=== PATIENT | female | born 1945 | race Two or more races ===

== ENCOUNTER 2017-11-18 08:26 | Inpatient (IN) | payer MEDICARE, OTHER ==
[~2017-11-18] VITALS: Ht 162.6 cm; Wt 63.5 kg
--- NOTE | 2017-11-18 09:00 | NUR ---
PATIENT TO ED DT NAUSEA, VOMITING, DIARRHEA, CHILLS. PATIENT ARRIVED AAO4. COMPLAINING OF CHILLS. SKIN WARM TO TOUCH AND NON DIAPHORETIC,. AFEBRILE. VSS
[2017-11-18] MEDS ORDERED: ONDANSETRON HCL/PF 4 MG/2 ML VIAL ONE ×2 (09:13→12:02)
[2017-11-18] MEDS ORDERED: ACETAMINOPHEN 325 MG TABLET ONE (09:14)
[2017-11-18 09:26] LABS: BASOPHILS # (AUTO) 0.6 /CMM (0.0-0.2); BASOPHILS % (AUTO) 2.9 % (0.0-2.0); EOSINOPHILS # (AUTO) 0.2 /CMM (0.0-0.7); EOSINOPHILS % (AUTO) 0.9 % (0.0-6.0); HEMATOCRIT 44 % (33-45); HEMOGLOBIN 14.8 g/dL (11.5-14.8); LYMPHOCYTES # (AUTO) 2.2 /CMM (0.8-4.8); LYMPHOCYTES % (AUTO) 10.4 % (20.0-44.0); MEAN CORPUSCULAR HEMOGLOBIN 30 PG (26.0-33.0); MEAN CORPUSCULAR HGB CONC 34 g/dl (31.0-36.0); MEAN CORPUSCULAR VOLUME 90 fL (82-100); MONOCYTES % (AUTO) 4.8 % (2.0-12.0); NEUTROPHILS # (AUTO) 17.5 /CMM (1.8-8.9); PLATELET COUNT (AUTO) 301 /CMM (150-450); RDW COEFFICIENT OF VARIATION 12.9 (11.5-15.0); RED BLOOD CELL COUNT(AUTO) 4.85 MIL/uL (4.0-5.2); WHITE BLOOD COUNT (AUTO) 21.5 K/uL (4.3-11.0)
[2017-11-18] MEDS ORDERED: ACETAMINOPHEN ES 500 MG TABLET PO ONE (09:30)
[2017-11-18] MEDS ORDERED: IV NS 0.9% 1,000 ML BAG IV ONE (09:30)
[2017-11-18] MEDS ORDERED: ONDANSETRON HCL/PF 4 MG/2 ML VIAL IVP ONE (09:30)
[2017-11-18 09:39] LABS: CALCIUM, SERUM 9.7 mg/dL (8.5-10.1); CARBON DIOXIDE 25 mmol/L (21-32); CHLORIDE 96 mmol/L (98-107); GLUCOSE 202 mg/dL (74-106); POTASSIUM 3.5 mmol/L (3.5-5.1); SODIUM SERUM 136 mmol/L (136-145); UREA NITROGEN, BLOOD 16 mg/dL (7-18)
[2017-11-18 09:45] LABS: ALANINE AMINOTRANSFERASE 30 U/L (12-78); ALBUMIN 4.4 g/dL (3.4-5.0); ALKALINE PHOSPHATASE 100 U/L (46-116); ASPARTATE AMINOTRANSFERASE 41 U/L (15-37); BILIRUBIN,DIRECT 0.2 mg/dL (0.0-0.2); BILIRUBIN,TOTAL 1.8 mg/dL (0.2-1.0); LIPASE 192 U/L (73-393); TROPONIN I 0.316 ng/mL (0.00-0.056)
[2017-11-18 10:49] LABS: APPEARANCE,URINE Clear (CLEAR); BILIRUBIN,URINE Negative (NEGATIVE); BLOOD, URINE Trace-lysed Ery/uL (NEGATIVE); COLOR,URINE Yellow (YELLOW); KETONES,URINE 15 (NEGATIVE); LEUKOCYTE ESTERASE ,URINE Negative (NEGATIVE); NITRITE, URINE Negative (NEGATIVE); PROTEIN,URINE 30 mg/dl (NEGATIVE); UGLUCOSE Negative (NEGATIVE); UROBILINOGEN,URINE 0.2 EU/dL (0.2)
[2017-11-18] MEDS ORDERED: ASPIRIN 81 MG TAB.CHEW ONE (10:50)
[2017-11-18] MEDS ORDERED: ASPIRIN 81 MG TAB.CHEW PO ONE (11:00)
[2017-11-18 11:03] LABS: BACTERIA,URINE Rare /HPF (None Seen); MUCUS,URINE Few /LPF (None Seen); RBC,URINE 0-2 /HPF (0-2); SQUAMOUS EPITHELIAL CELL,UR Rare /HPF (None Seen); WBC,URINE 0-2 /HPF (0-3); YEAST,URINE Few /HPF (None Seen)
[2017-11-18] MEDS ORDERED: LEVO75TA7 PO (11:08)
[2017-11-18] MEDS ORDERED: ATOR40TA PO (11:08)
[2017-11-18] MEDS ORDERED: SERT50TA PO (11:08)
[2017-11-18] MEDS ORDERED: LOSA1TAB36 PO (11:08)
[2017-11-18] MEDS ORDERED: LORAZEPAM 1 MG TABLET ONE (11:23)
--- NOTE | 2017-11-18 11:25 | NUR ---
CRISTELA VIERA AT BEDSIDE
[2017-11-18] MEDS ORDERED: LORAZEPAM 1 MG TABLET PO ONE (11:30)
[2017-11-18] MEDS ORDERED: ONDANSETRON HCL/PF - ER 4 MG/2 ML VIAL IV ONE (12:00)
--- NOTE | 2017-11-18 12:24 | NUR ---
report given to maria c castellanos for lashonda
--- NOTE | 2017-11-18 12:40 | NUR ---
PT TRANSPORTED TO [facility]
[2017-11-18] MEDS ORDERED: MAG HYDROX/AL HYDROX/SIMETH 30 ML UDC PO PRN (13:00)
[2017-11-18] MEDS ORDERED: Z GUARD REMEDY 2 OZ OINT TP PRN (13:00)
[2017-11-18] MEDS ORDERED: MAGNESIUM HYDROXIDE 30 ML UDC PO PRN (13:00)
[2017-11-18] MEDS ORDERED: MORPHINE SULFATE INJ 2 MG/ML DISP.SYRIN IM PRN (13:00)
[2017-11-18] MEDS ORDERED: HYDROCODONE/APAP 5/325MG 1 EACH TABLET PO PRN (13:00)
[2017-11-18] MEDS ORDERED: ACETAMINOPHEN 325 MG TABLET PO PRN (13:00)
--- NOTE | 2017-11-18 13:00 | NUR ---
SOFTWARE DEVELOPERCERAMIC TILE MECHANIC NOTE PATIENT IS ALERT AND ORIENTED x4. NO PAIN AT THIS TIME. NO SOB OR DISTRESS NOTED. CALL LIGHT WITHIN REACH. SAFETY MEASURES IMPLEMENTED. ABLE TO COMMUNICATE NEEDS. NO EPISODES OF NAUSEA OR VOMITING AT THIS TIME. CAME FROM ER VIA GURNEY, PATIENT ABLE TO AMBULATE, STEADY GAIT. IV ON RIGHT AC 20G INTACT AND PATENT NO REDNESS OR SWELLING NOTED. ALL BELONGINGS ACCOUNTED FOR AND AT BEDSIDE. FULL CODE NO ISOLATION. NO MEDICAL HISTORY. PATIENT IS A LITTLE ANXIOUS, FAMILY AT BEDSIDE TALKING TO PATIENT TO CALM HER DOWN. AWAITING MD ORDERS AND CARDIO CONSULT. WILL CONTINUE TO MONITOR THROUGHOUT SHIFT
[2017-11-18] MEDS: METOCLOPRAMIDE HCL 10 MG/2 ML VIAL IV PRN ×2 (14:01→21:05)
--- NOTE | 2017-11-18 14:05 | NUR ---
LIBRARIAN HEAD NOTE PATIENT STATING SHE FEELS NAUSEOUS. REGLAN 10 MG GIVEN. WILL REASSESS IN 15 MINS.
--- NOTE | 2017-11-18 14:25 | NUR ---
IMMIGRATION GUARD NOTE PATIENT TOLERATING REGLAN WELL. NO EPISODES OF NAUSEA OR VOMITING PRESENT AT THIS TIME. PATIENT SLEEPING COMFORTABLY
[2017-11-18] MEDS: IV NS 0.9% 1,000 ML IV PRN (14:56)
[2017-11-18 16:00] VITALS: BP 134/73
[2017-11-18] MEDS: ONDANSETRON HCL/PF 4 MG/2 ML VIAL IVP PRN (17:51)
--- NOTE | 2017-11-18 18:35 | NUR ---
INSPECTOR WATCH ASSEMBLY CLOSING NOTE PATIENT IS ALERT AND ORIENTED x4. NO SOB OR DISTRESS NOTED. CALL LIGHT WITHIN REACH AT ALL TIMES. SAFETY MEASURES IMPLEMENTED. ABLE TO COMMUNICATE NEEDS. PATIENT KEEPS TOSSING AND TURNING IN BED REMINDING PATIENT TO STAY STILL DUE TO IV BEING CONNECTED. IV INTACT AND PATENT ON RIGHT AC IV FLUIDS RUNNING AT 75 ML/HR TOLERATING WELL. LABS IN AM. WILL HAVE EGD DONE TOMORROW, CONSENTS OBTAINED AND IN CHART. NPO AFTER MIDNIGHT. WILL HAVE CHEST X-RAY 11/19/17. WILL ENDORSE TO CHUMMER NURSE FOR AMRIT
--- NOTE | 2017-11-18 19:30 | NUR ---
DELI ASSOCIATE OPENING NOTES: RECEIVED PT AND IS AWAKE WITH AT BEDSIDE. PT IS A/OX4. NO SOB OR DISTRESS NOTED AT THIS TIME TIME. PT IS BEING INFUSED WITH NS AT 75ML/HR. CALL LIGHT WITHIN PT'S REACH. BED KEPT IN LOW, LOCKED POSITION, AND SIDE RAILS X 2UP. WILL CONTINUE TO MONITOR PT.
[2017-11-18 20:00] VITALS: BP 156/62
[2017-11-18] MEDS: ATORVASTATIN 40 MG TABLET PO SCH (21:39)
[2017-11-18] MEDS: ZOLPIDEM TARTRATE 5 MG TABLET PO PRN (21:39)
--- NOTE | 2017-11-18 21:42 | NUR ---
BURN OUT SCARFING OPERATOR NOTES: PT IS REQUESTING FOR A SLEEP MEDICATION. PT WAS ADMINISTERED AMBIEN 5MG. PT WAS ALSO NOTIFIED THAT POST MIDNIGHT, SHE IS NPO. PT AWARE.
[2017-11-19] VITALS (8 sets, daily range): BP systolic 150–177; BP diastolic 66–88
[2017-11-19] MEDS: ONDANSETRON HCL/PF 4 MG/2 ML VIAL IVP PRN (00:38)
--- NOTE | 2017-11-19 03:30 | NUR ---
THEOLOGY TEACHER NOTES: MIRROR FRAMER SAMANTHA CASAS ON FLOOR. INFORMED HER THAT PATIENT HAS BEEN GETTING AGITATED THROUGHOUT MY SHIFT. PT HAS BEEN NPO POST MIDNIGHT. ATIVAN 1MG IV Q6 PRN HAS BEEN ORDERED.
--- NOTE | 2017-11-19 03:35 | NUR ---
MEDICATION COORDINATOR NOTES: INFORMED PUMP SERVICER AUGUSTO ABOUT HEART RATE. ATIVAN ORDERED CHANGED TO ATIVAN 0.5MG IV Q6 PRN. WILL CONTINUE TO MONITOR.
[2017-11-19] MEDS ORDERED: LORAZEPAM INJ 2 MG/ML VIAL IV PRN (04:00)
--- NOTE | 2017-11-19 04:00 | NUR ---
PILE OPERATOR NOTES: PT KEEPS GETTING UP FROM BED AND IS SAYING SHE IS AGITATED. PT SAYING SHE CANNOT GET COMFORTABLE AND GETTING ANXIOUS. PT WAS ADMINISTERED ATIVAN 0.5MG IV. WILL CONTINUE TO MONITOR PT.
[2017-11-19] MEDS ORDERED: LORAZEPAM INJ 2 MG/ML VIAL ONE (04:01)
[2017-11-19] MEDS: LORAZEPAM INJ 2 MG/ML VIAL IV PRN ×2 (04:04→15:57)
--- NOTE | 2017-11-19 04:30 | NUR ---
MOLD MAKER NOTES: R AC #20G WAS LEAKING. NEW IV STARTED ON L FOREARM #22G.
[2017-11-19] MEDS: IV NS 0.9% 1,000 ML IV PRN ×2 (05:52→20:57)
[2017-11-19 06:48] LABS: BASOPHILS % (AUTO) 0.2 % (0.0-2.0); HEMATOCRIT 34 % (33-45); HEMOGLOBIN 11.7 g/dL (11.5-14.8); LYMPHOCYTES # (AUTO) 1.7 /CMM (0.8-4.8); LYMPHOCYTES % (AUTO) 12.5 % (20.0-44.0); MEAN CORPUSCULAR HEMOGLOBIN 31 PG (26.0-33.0); MEAN CORPUSCULAR HGB CONC 34 g/dl (31.0-36.0); MEAN CORPUSCULAR VOLUME 91 fL (82-100); MONOCYTES # (AUTO) 0.8 /CMM (0.1-1.30); MONOCYTES % (AUTO) 6.2 % (2.0-12.0); NEUTROPHILS # (AUTO) 11.1 /CMM (1.8-8.9); NEUTROPHILS % (AUTO) 81.1 % (43.0-81.0); PLATELET COUNT (AUTO) 213 /CMM (150-450); RDW COEFFICIENT OF VARIATION 12.5 (11.5-15.0); RED BLOOD CELL COUNT(AUTO) 3.77 MIL/uL (4.0-5.2); WHITE BLOOD COUNT (AUTO) 13.6 K/uL (4.3-11.0)
--- NOTE | 2017-11-19 06:55 | NUR ---
BIOLOGIST AIDE CLOSING NOTES: ALL NEEDS WERE ATTENDED AND ANTICIPATED FOR. PT ASLEEP AT THIS TIME. NO SOB OR DISTRESS NOTED AT THIS TIME TIME. PT IS BEING INFUSED WITH NS AT 75ML/HR. CALL LIGHT WITHIN PT'S REACH. NEW IV ON L FOREARM #22G. PT ON TELE BOX AND READING SHOWS SB 42-SR 65 THROUGHOUT MY SHIFT. PT KEPT NPO POST MIDNIGHT OF 11/19/17. BED KEPT IN LOW, LOCKED POSITION, AND SIDE RAILS X 2UP. WILL ENDORSE TO AM NURSE FOR AMRIT.
[2017-11-19 07:29] LABS: CHOLESTEROL 128 mg/dL (<200); HDL CHOLESTEROL 48 mg/dL (40-60); LDL 67 mg/dL (0-99); THYROID STIMULATING HORMONE 2.164 uIU/mL (0.358-3.74); TRIGLYCERIDES 74 mg/dL (30-150)
[2017-11-19] MEDS: LEVOTHYROXINE SODIUM 75 MCG TABLET PO SCH (07:30)
[2017-11-19 07:32] LABS: CALCIUM, SERUM 7.9 mg/dL (8.5-10.1); CREATININE 0.8 mg/dL (0.6-1.3); GLUCOSE 149 mg/dL (74-106); PHOSPHORUS 2.6 mg/dL (2.5-4.9); UREA NITROGEN, BLOOD 12 mg/dL (7-18)
--- NOTE | 2017-11-19 07:58 | NUR ---
DOUGH PUNCHER OPENING NOTE PATIENT IS ALERT AND ORIENTED x4, PERIODS OF FORGETFULNESS. NO PAIN AT THIS TIME. NO SOB OR DISTRESS NOTED. CALL LIGHT WITHIN REACH. ABLE TO COMMUNICATE NEEDS. IV ON LEFT FOREARM INTACT AND PATENT NO REDNESS OR SWELLING NOTED, IV FLUIDS RUNNING AT THIS TIME TOLERATING WELL. NPO FOR EGD TODAY AT 0900. CONSENTS OBTAINED AND CHECKLIST DONE. TELE MONITOR-SB IN THE 50s. NO VOMITING OR NAUSEA PRESENT AT THIS TIME. WILL CONTINUE TO MONITOR THROUGHOUT SHIFT
[2017-11-19 08:21] LABS: CARBON DIOXIDE 23 mmol/L (21-32); CHLORIDE 105 mmol/L (98-107); SODIUM SERUM 139 mmol/L (136-145)
[2017-11-19 08:29] LABS: POTASSIUM 2.5 mmol/L (3.5-5.1)
[2017-11-19] MEDS: SERTRALINE HCL 50 MG TABLET PO SCH (08:30)
[2017-11-19] MEDS: LOSARTAN POTASSIUM 50 MG TABLET PO SCH ×2 (08:30→21:50)
[2017-11-19] MEDS: ASPIRIN 81 MG TAB.CHEW PO SCH (08:30)
--- NOTE | 2017-11-19 08:30 | NUR ---
SIZE MAKER NOTE RECEIVED CALL THAT POTASSIUM IS 2.5. MD AWARE. ORDER FOR POTASSIUM 60
[2017-11-19] MEDS ORDERED: ANESTHESIA TRAY IN PYXIS 1 EA TRAY MC ONE (08:59)
[2017-11-19 09:03] LABS: IRON, SERUM 62 ug/dl (50-175); TOTAL IRON BINDING CAPACITY 229 ug/dl (250-450)
[2017-11-19 11:39] LABS: LYMPHOCYTES % (MANUAL) 12 % (16-48); MONOCYTES % (MANUAL) 4 % (0-11.0); NEUTROPHILS % (MANUAL) 84 (42-76)
[2017-11-19] MEDS: METOCLOPRAMIDE HCL 10 MG/2 ML VIAL IV PRN ×2 (12:17→20:38)
[2017-11-19] MEDS: POTASSIUM CL. PREMIX PERIPHER. 50 ML IV SCH ×6 (12:17→20:40)
[2017-11-19] MEDS: ALPRAZOLAM 0.25 MG TABLET PO PRN ×2 (12:34→20:39)
--- NOTE | 2017-11-19 12:35 | NUR ---
CHIEF EXECUTIVE OFFICER NOTE PATIENT IS VERY ANXIOUS, REQUESTING FOR XANAX. XANAX GIVEN WILL CONTINUE TO MONITOR PATIENT
--- NOTE | 2017-11-19 15:06 | NUR ---
NM;HIDA SCAN WAS COMPLETED. TECH:RB
[2017-11-19] MEDS: PANTOPRAZOLE 40 MG TABLET.DR PO SCH (17:02)
--- NOTE | 2017-11-19 18:48 | NUR ---
ANIMAL RESEARCHER CLOSING NOTE PATIENT IS ALERT AND ORIENTED x4. NO PAIN AT THIS TIME. NO SOB OR DISTRESS NOTED. CALL LIGHT WITHIN REACH AT ALL TIMES. SAFETY MEASURES IMPLEMENTED. ALL DUE MEDICATIONS GIVEN ORDERED. ALL NURSING CARE NEEDS ATTENDED TO NEEDED. REFUSES TO HAVE TELE MONITOR PUT ON AT THIS TIME. IV INTACT AND PATENT NO REDNESS OR SWELLING NOTED, IV FLUIDS RUNNING AT THIS TIME. POTASSIUM CURRENTLY BEING REPLACE BAG 5/6. TOLERATING WELL. PATIENT IS S/P EGD WITH DR. GARCIA-FINDINGS SHOW ESOPHAGITIS AND HIATAL HERNIA; AWAITING PATHOLOGY REPORT TO DISCUSS ANTIBIOTIC TX. S/P HIDA SCAN-CAME BACK NEGATIVE. ON FULL LIQUID DIET, SEMI TOLERATING. ON 2L MIN/HR OF OXYGEN VIA NASAL CANNULA. WILL ENDORSE TO CLIENT SERVICES ASSISTANT NURSE FOR AMRIT
--- NOTE | 2017-11-19 19:30 | NUR ---
SHAKE OUT WORKER INITIAL NOTE PT RECEIVED SITTING UP IN BED WITH FAMILY AT BEDSIDE. A/O X3 AND NOTED WITH RESTLESSNESS AND ANXIETY. ON ROOM AIR AND SATURATING WELL. BREATHING REGULAR, EVEN AND UNLABORED. IV RIGHT FOREARM CLEAN, DRY WITH FLUIDS INFUSING. FAMILY ASKING ABOUT ANTIBIOTIC TREATMENT. WILL FOLLOW UP WITH DOCTOR SAP ENTERPRISE PORTAL CONSULTANT FOR FURTHER INSTRUCTION.
--- NOTE | 2017-11-19 20:30 | NUR ---
RN NOTE SPOKE WITH ON SARABJIT DR ROSE REGARDING FAMILY WANTING ANTIBIOTIC TO TAKE PT HOME. STATED NO NEED FOR ANTIBIOTIC AT THIS TIME AND TO ENDORSE TO MORNING SHIFT TO FOLLOW UP. EXPLAINED TO FAMILY AND THEY VERBALIZED UNDERSTANDING. WILL CONTINUE TO MONITOR.
--- NOTE | 2017-11-19 21:30 | NUR ---
RN NOTE ENDORSED TO MURRAY CAGE FOR CONTINUITY OF CARE.
[2017-11-19] MEDS: ATORVASTATIN 40 MG TABLET PO SCH (21:50)
--- NOTE | 2017-11-19 22:00 | NUR ---
LUCINDA RN INITIAL NOTE PT RECEIVED ASLEEP IN BED. EASILY AROUSABLE. ON ROOM AIR AND SATURATING WELL. BREATHING REGULAR, EVEN AND UNLABORED. IV RIGHT FOREARM CLEAN, DRY WITH FLUIDS INFUSING. FAMILY AT BEDSIDE. ALL QUESTIONS ANSWERED. WILL CONTINUE TO MONITOR.
[2017-11-19] MEDS: ZOLPIDEM TARTRATE 5 MG TABLET PO PRN (22:43)
[2017-11-20 04:00] VITALS: BP 152/72
--- NOTE | 2017-11-20 06:43 | NUR ---
TOOLER NOTE PATIENT AWAKE AT THIS TIME. CALM, BUT REFUSING IV FLUIDS AND TELE MONITORING. EDUCATED PATIENT ON IMPORTANCE OF THESE THINGS. PATIENT CONTINUES TO REFUSE. ALL NEEDS MET AND ATTENDED TO. WILL ENDORSE TO DAY SHIFT FOR AMRIT.
[2017-11-20] MEDS: LEVOTHYROXINE SODIUM 75 MCG TABLET PO SCH (07:30)
--- NOTE | 2017-11-20 07:51 | NUR ---
RN OPEN NOTES RECEIVED REPORT FROM CLINICAL CYTOGENETICIST SCIENTIST NURSE. PATIENT IS IN BED, WITH HER EYES CLOSED, EASILY AROUSED FOR LIGHT TOUCH. NO SIGNS AND SYMPTOMS OF DISTRESS. BREATHING I S BILATERALLY EVEN AND UNLABORED. BED IN LOW POSITION, LOCKED AND TWO SIDE RAILS ARE UP. CALL LIGHT WITHIN REACH FOR SAFETY. WILL CONTINUE TO MONITOR AND ASSESS PATIENT THROUGH OUT MY SHIFT
[2017-11-20 08:00] VITALS: BP 150/79
[2017-11-20] MEDS: ASPIRIN 81 MG TAB.CHEW PO SCH (08:35)
[2017-11-20] MEDS: SERTRALINE HCL 50 MG TABLET PO SCH (08:36)
[2017-11-20] MEDS: PANTOPRAZOLE 40 MG TABLET.DR PO SCH ×2 (08:36→16:50)
[2017-11-20] MEDS: METOCLOPRAMIDE HCL 10 MG/2 ML VIAL IV PRN ×2 (09:16→15:44)
[2017-11-20 13:48] LABS: BASOPHILS % (AUTO) 0.4 % (0.0-2.0); EOSINOPHILS % (AUTO) 0.1 % (0.0-6.0); HEMATOCRIT 35 % (33-45); HEMOGLOBIN 11.8 g/dL (11.5-14.8); LYMPHOCYTES # (AUTO) 1.7 /CMM (0.8-4.8); LYMPHOCYTES % (AUTO) 15.1 % (20.0-44.0); MEAN CORPUSCULAR HEMOGLOBIN 31 PG (26.0-33.0); MEAN CORPUSCULAR HGB CONC 34 g/dl (31.0-36.0); MEAN CORPUSCULAR VOLUME 92 fL (82-100); MONOCYTES # (AUTO) 0.9 /CMM (0.1-1.30); MONOCYTES % (AUTO) 7.7 % (2.0-12.0); NEUTROPHILS # (AUTO) 8.7 /CMM (1.8-8.9); NEUTROPHILS % (AUTO) 76.7 % (43.0-81.0); PLATELET COUNT (AUTO) 194 /CMM (150-450); RDW COEFFICIENT OF VARIATION 13.5 (11.5-15.0); RED BLOOD CELL COUNT(AUTO) 3.76 MIL/uL (4.0-5.2); WHITE BLOOD COUNT (AUTO) 11.3 K/uL (4.3-11.0)
[2017-11-20 14:42] LABS: CALCIUM, SERUM 7.9 mg/dL (8.5-10.1); CARBON DIOXIDE 28 mmol/L (21-32); CHLORIDE 103 mmol/L (98-107); CREATININE 0.8 mg/dL (0.6-1.3); GLUCOSE 160 mg/dL (74-106); SODIUM SERUM 138 mmol/L (136-145); UREA NITROGEN, BLOOD 10 mg/dL (7-18)
[2017-11-20 16:00] VITALS: BP 149/89
[2017-11-20 16:03] LABS: POTASSIUM 2.3 mmol/L (3.5-5.1)
[2017-11-20] MEDS: POTASSIUM CL. PREMIX PERIPHER. 50 ML IV SCH ×4 (18:21→22:08)
--- NOTE | 2017-11-20 19:25 | NUR ---
RN CLOSED NOTES PATIENT IS IN BED, AWAKE ALERT AND ORIENTED TO NAME PLACE AND TIME. NO SIGNS AND SYMPTOMS OF DISTRESS. BREATHING IS BILATERALLY EVEN AND UNLABORED. BED IN LOW POSITION, LOCKED AND TWO SIDE RAILS ARE UP. CALL LIGHT WITHIN REACH FOR SAFETY. ALL NURSING CARE ANTICIPATED AND ATTENDED FOR. PATIENT KEPT CLEAN AND DRY. WILL ENDORSE TO LEGAL EDITOR NURSE
[2017-11-20 20:00] VITALS: BP 137/68
--- NOTE | 2017-11-20 20:00 | NUR ---
MS LIBRARY MANAGER INITIAL NOTES PT CHECKED AFTER GOT REPORT FROM AM NURSE LEISA. KCL IVP BAG STILL INFUSING, NO REDNESS NOTED, PT DENIES ANY BURNING SENSATION ON IV SITE. BREATHING EVEN AND UNLABORED, SKIN WARM TO TOUCH. WILL CONTINUE TO MONITOR. DAUGHTER AT THE BEDSIDE AT THIS TIME. PLACE CALL LIGHT AT REACH.
[2017-11-20] MEDS: ALPRAZOLAM 0.25 MG TABLET PO PRN (20:47)
--- NOTE | 2017-11-20 20:47 | NUR ---
ORE GRADER/NOTES XANAX PO GIVEN PER PT REQUESTED , EDUCATE PT FOR POSSIBLE SIDE EFFECT AND PT UNDERSTOOD WELL. SAFETY PRECAUTION APPLIED. WILL CONTINUE TO MONITOR. FAMILY REMAIN AT THE BEDSIDE.
[2017-11-20] MEDS: ATORVASTATIN 40 MG TABLET PO SCH (22:40)
--- NOTE | 2017-11-20 23:00 | NUR ---
MS MANAGER IN TRAINING NOTES PT RESTING COMFORTABLY IN BED WITHOUT ANY ACUTE DISTRESS NOTED. RESPIRATION EVEN AND NON-LABORED. KCL IVP BAG STILL INFUSING. NO SIGNS OF ANY DISCOMFORT ON HER IV SITE. KEPT HER WARM AND COMFORTABLE AT ALL TIMES. WILL CONTINUE TO MONITOR.PLACE CALL LIGHT AT REACH.
[2017-11-21] MEDS: ZOLPIDEM TARTRATE 5 MG TABLET PO PRN (00:40)
[2017-11-21] MEDS: IV NS 0.9% 1,000 ML IV PRN (00:40)
--- NOTE | 2017-11-21 00:40 | NUR ---
REPULPING SUPERVISOR./NOTES PT WOKE UP AND ASKING FOR HER SLEEP MEDICATION. AMBIEN GIVEN ORDERED. SAFETY PRECAUTION IMPLEMENTED. WILL CONTINUE TO MONITOR.
--- NOTE | 2017-11-21 02:00 | NUR ---
SENIOR FINANCIAL REPORTING ANALYST/NOTES REMAINS SLEEPING AT THIS TIME. RESPIRATION EVEN AND UNLABORED. WILL CONTINUE MONITORING.
--- NOTE | 2017-11-21 06:54 | NUR ---
MS EYE DROPPER ASSEMBLER CLOSING NOTES PT BACK TO REST AFTER MORNING CARE DONE. ALL DUE MEDS GIVEN AND ALL NEEDS MET. STABLE ISAEL THE NIGHT. SLEPT WELL AFTER SLEEP MED GIVEN PAST 12MN PER PT REQUESTED. KEPT HER WARM AND COMFORTABLE AT ALL TIMES. RESPIRATION EVEN AND NON-LABORED AND SKIN WARM AND DRY TO TOUCH. WILL ENDORSE TO AM NURSE FOR CONTINUITY OF CARE. PLACE CALL LIGHT REACH BED ALARM SET FOR PT SAFETY, SIDE RAILS UP AND BED IN LOW AND LOCK IN POSITION.
--- NOTE | 2017-11-21 07:40 | NUR ---
MS/RN OPENING NOTE PATIENT IN BED IN STABLE CONDITION. A/O X 4. NO SIGNS OF ACUTE DISTRESS. NO COMPLAIN OF PAIN OR DISCOMFORT. NPO STATUS SECONDARY TO CT ANGIO SCHEDULE TODAY. ALL NEEDS ATTENDED TO. CALL LIGHT WITHIN REACH. WILL CONTINUE TO MONITOR TO ENSURE SAFETY.
[2017-11-21 07:52] LABS: BASOPHILS # (AUTO) 0.1 /CMM (0.0-0.2); BASOPHILS % (AUTO) 1.1 % (0.0-2.0); EOSINOPHILS # (AUTO) 0.1 /CMM (0.0-0.7); EOSINOPHILS % (AUTO) 1.2 % (0.0-6.0); HEMATOCRIT 34 % (33-45); HEMOGLOBIN 11.9 g/dL (11.5-14.8); MEAN CORPUSCULAR HEMOGLOBIN 32 PG (26.0-33.0); MEAN CORPUSCULAR HGB CONC 35 g/dl (31.0-36.0); MEAN CORPUSCULAR VOLUME 90 fL (82-100); MONOCYTES # (AUTO) 0.7 /CMM (0.1-1.30); MONOCYTES % (AUTO) 7.7 % (2.0-12.0); NEUTROPHILS # (AUTO) 6.5 /CMM (1.8-8.9); PLATELET COUNT (AUTO) 176 /CMM (150-450); RDW COEFFICIENT OF VARIATION 12.2 (11.5-15.0); RED BLOOD CELL COUNT(AUTO) 3.77 MIL/uL (4.0-5.2); WHITE BLOOD COUNT (AUTO) 9.4 K/uL (4.3-11.0)
[2017-11-21 08:00] VITALS: BP 143/73
[2017-11-21] MEDS: LOSARTAN POTASSIUM 50 MG TABLET PO SCH (08:48)
[2017-11-21] MEDS: PANTOPRAZOLE 40 MG TABLET.DR PO SCH ×2 (08:51→16:50)
[2017-11-21] MEDS: ASPIRIN 81 MG TAB.CHEW PO SCH (08:51)
[2017-11-21] MEDS: LEVOTHYROXINE SODIUM 75 MCG TABLET PO SCH (08:51)
[2017-11-21] MEDS: SERTRALINE HCL 50 MG TABLET PO SCH (08:51)
[2017-11-21 08:53] LABS: CALCIUM, SERUM 7.8 mg/dL (8.5-10.1); CARBON DIOXIDE 28 mmol/L (21-32); CHLORIDE 105 mmol/L (98-107); CREATININE 0.7 mg/dL (0.6-1.3); GLUCOSE 110 mg/dL (74-106); SODIUM SERUM 141 mmol/L (136-145); UREA NITROGEN, BLOOD 9 mg/dL (7-18)
[2017-11-21 09:16] LABS: POTASSIUM 2.5 mmol/L (3.5-5.1)
--- NOTE | 2017-11-21 09:18 | NUR ---
MS/RN CRITICAL POTASSIUM RECEIVED CALL FROM LAB WITH CRITICAL POTASSIUM OF 2.5, DR MONTAÑO MADE AWARE WITH NEW ORDER OF POTASSIUM 60MEQ. 30MEQ NOW AND REMAINING 30MEQ FOUR HOURS LATER. PATIENT AWARE.
[2017-11-21] MEDS ORDERED: POTASSIUM CHLORIDE 10 MEQ TABLET.SA PO ONE ×2 (09:30→13:00)
[2017-11-21] MEDS ORDERED: CT SWABBABLE VALVE TRANS SET 1 EA INFUS.SET MC ONE (11:09)
[2017-11-21] MEDS ORDERED: IOHEXOL-350 100 ML VIAL IV ONE (11:09)
[2017-11-21] MEDS: POTASSIUM CL. PREMIX PERIPHER. 50 ML IV SCH ×2 (14:15→15:36)
--- NOTE | 2017-11-21 18:18 | NUR ---
MS/RN CLOSING NOTE PATIENT IN BED IN STABLE CONDITION. A/O X 4. NO SIGNS OF ACUTE DISTRESS. NO COMPLAIN OF PAIN OR DISCOMFORT. ALL NEEDS ATTENDED TO. CALL LIGHT WITHIN REACH. WILL ENDORSE TO NEXT SHIFT FOR CONTINUITY OF CARE.
--- NOTE | 2017-11-21 19:30 | NUR ---
MS TOWEL SORTER INITIAL NOTES RECEIVED PT IN BED AWAKE AND ALERT WITH IVF OF NS AT 75ML/HR INFUSING AT THIS TIME ON HER LEFT AC PATENT AND INTACT. NO SIGNS OF ANY DISCOMFORT, BUT PT REQUESTING HER XANAX FOR NOW BECAUSE SHE'S FEELING GETTING ANXIETY ATTACK. KEPT HER WARM AND COMFORTABLE AT ALL TIMES. PLACE CALL LIGHT AT REACH. WILL CONTINUE TO MONITOR.
[2017-11-21 20:00] VITALS: BP 157/93
[2017-11-21] MEDS: ALPRAZOLAM 0.25 MG TABLET PO PRN (20:27)
--- NOTE | 2017-11-21 21:24 | NUR ---
CABLEMAN/NOTES XANAX GIVEN ORDERED PER PT REQUESTED. SAFETY PRECAUTION IMPLEMENTED AND OBSERVED. WILL CONTINUE TO MONITOR. PLACE CALL LIGHT AT REACH.
[2017-11-21] MEDS: ATORVASTATIN 40 MG TABLET PO SCH (22:47)
[2017-11-22] MEDS: ALPRAZOLAM 0.25 MG TABLET PO PRN ×2 (03:18→13:52)
[2017-11-22] MEDS: ONDANSETRON HCL/PF 4 MG/2 ML VIAL IVP PRN (03:37)
[2017-11-22] MEDS: IV NS 0.9% 1,000 ML IV PRN (05:57)
--- NOTE | 2017-11-22 07:30 | NUR ---
MS OLEO HASHER AND RENDERER CLOSING NOTES PT BACK TO SLEEP AFTER XANAX GIVEN. BREATHING EVEN AND NON-LABORED, NOT IN ANY ACUTE DISTRESS NOTED. ALL DUE MEDS GIVEN AND ALL NEEDS MET. KEPT HER WARM AND COMFORTABLE AT ALL TIMES. ENDORSE TO AM NURSE. PLACE CALL LIGHT AT REACH.
[2017-11-22 08:00] VITALS: BP 150/72
--- NOTE | 2017-11-22 08:00 | NUR ---
MS RN NOTES CALL RECEIVED FROM LAB WITH REPORT OF POTASSIUM OF 2.[address] MONTAÑO WAITING FOR CALL BACK.
--- NOTE | 2017-11-22 08:00 | NUR ---
MS RN NOTES RECEIVED PATIENT IN BED SLEEPING, AROUSABLE TO VERBAL AND TACTILE STIMULI. NO SOB NOTED. NO SIGN OF ACUTE DISTRESS NOTED. BREATHING REGULAR AND UNLABORED. SKIN IS SOFT AND WARM TO TOUCH. IV ACCESS PATENT AND INTACT. NO REDNESS, NO S/SX OF INFILTRATION NOTED. CALL LIGHT PLACED WITHIN REACH. SAFETY MEASURES IN PLACE.HOB ELEVATED. BED LOCKED. WILL CONTINUE TO MONITOR ACCORDINGLY.
[2017-11-22 08:23] LABS: BASOPHILS % (AUTO) 0.4 % (0.0-2.0); EOSINOPHILS # (AUTO) 0.2 /CMM (0.0-0.7); HEMATOCRIT 35 % (33-45); HEMOGLOBIN 12.1 g/dL (11.5-14.8); LYMPHOCYTES # (AUTO) 1.8 /CMM (0.8-4.8); LYMPHOCYTES % (AUTO) 21.2 % (20.0-44.0); MEAN CORPUSCULAR HEMOGLOBIN 32 PG (26.0-33.0); MEAN CORPUSCULAR HGB CONC 35 g/dl (31.0-36.0); MEAN CORPUSCULAR VOLUME 92 fL (82-100); MONOCYTES # (AUTO) 0.5 /CMM (0.1-1.30); MONOCYTES % (AUTO) 5.9 % (2.0-12.0); NEUTROPHILS # (AUTO) 6.1 /CMM (1.8-8.9); NEUTROPHILS % (AUTO) 70.5 % (43.0-81.0); PLATELET COUNT (AUTO) 201 /CMM (150-450); RDW COEFFICIENT OF VARIATION 13.2 (11.5-15.0); WHITE BLOOD COUNT (AUTO) 8.7 K/uL (4.3-11.0)
[2017-11-22] MEDS: LEVOTHYROXINE SODIUM 75 MCG TABLET PO SCH (08:29)
[2017-11-22] MEDS: SERTRALINE HCL 50 MG TABLET PO SCH (08:29)
[2017-11-22] MEDS: ASPIRIN 81 MG TAB.CHEW PO SCH (08:29)
[2017-11-22] MEDS: PANTOPRAZOLE 40 MG TABLET.DR PO SCH ×2 (08:29→17:46)
[2017-11-22] MEDS ORDERED: ONDA4TAB8 PO (08:30)
[2017-11-22] MEDS: LOSARTAN POTASSIUM 50 MG TABLET PO SCH (08:30)
[2017-11-22 08:45] LABS: CALCIUM, SERUM 7.5 mg/dL (8.5-10.1); CARBON DIOXIDE 26 mmol/L (21-32); CHLORIDE 107 mmol/L (98-107); CREATININE 0.7 mg/dL (0.6-1.3); GLUCOSE 93 mg/dL (74-106); SODIUM SERUM 142 mmol/L (136-145); UREA NITROGEN, BLOOD 8 mg/dL (7-18)
[2017-11-22 08:54] LABS: POTASSIUM 2.8 mmol/L (3.5-5.1)
--- NOTE | 2017-11-22 09:00 | NUR ---
MS RN NOTES PATIENT SEEN AND EVALUATED BY DR. MONTAÑO ORDERS FOR 60KCL MEQ IV. NOTED AND CARRIED OUT.
[2017-11-22] MEDS ORDERED: POTASSIUM CHLORIDE 10 MEQ/50 ML PREMIXED IVPB FOR PERIPHERAL LINE IV ONE (10:00)
[2017-11-22] MEDS: POTASSIUM CL. PREMIX PERIPHER. 50 ML IV SCH ×6 (12:01→18:59)
[2017-11-22 16:00] VITALS: BP 132/67
--- NOTE | 2017-11-22 18:30 | NUR ---
MS RN CLOSING NOTES PATIENT COMFORTABLY IN BED WATCHING TV. NO SOB NOTED. NO SIGN OF ACUTE DISTRESS NOTED. BREATHING REGULAR AND UNLABORED. VITAL SIGN STABLE. IV ACCESS PATENT AND INTACT. NO REDNESS, NO S/SX OF INFILTRATION NOTED. DENIED ANY PAIN. SEEN AND EVALUATED BY DR MONTAÑO WITH ORDERS TO ADMINISTER KCL 60 MEQ IV , LAB AFTER ADMINISTRATION AND IF RESULTS OK MAY DISHARGE HOME. PATIENT AND AWARE. DUE MEDICATIONS GIVEN. NO ASE NOTED. NEEDS ATTENDED. CALL LIGHT PLACED WITHIN REACH. SAFETY MEASURES IN PLACE. WILL CONTINUE TO MONITOR ACCORDINGLY ENDORSED TO SERVICENOW ADMINISTRATOR FOR CONTINUITY OF CARE..
[2017-11-22 20:00] VITALS: BP 129/73
[2017-11-22 22:00] VITALS: BP 129/73
[2017-11-22] MEDS: ATORVASTATIN 40 MG TABLET PO SCH (22:00)
--- NOTE | 2017-11-22 23:30 | NUR ---
MS RN NOTE POTASSIUM COMPLETE. STAT POTASSIUM LEVEL CAME BACK 3.6. PATIENT STATES SHE IS FEELING WEAK AND WOULD LIKE TO WAIT UNTIL THE MORNING TO BE DISCHARGED HOME SINCE IT'S 2330. ON-CALL DR. ROSE NOTIFIED. OKAY FOR PATIENT TO GO HOME IN AM. WILL CONTINUE TO MONITOR.
[2017-11-23] MEDS: ALPRAZOLAM 0.25 MG TABLET PO PRN (03:24)
--- NOTE | 2017-11-23 06:47 | NUR ---
MS RN NOTE PATIENT SLEEPING AT THIS TIME. ALL NEEDS MET AND ATTENDED TO. WILL ENDORSE TO DAY SHIFT FOR AMRIT.
--- NOTE | 2017-11-23 07:10 | NUR ---
RN NOTES PT IS LAYING DOWN IN BED SLEEPING, NO SIGNS OF DISTRESS NOTED. PT ON RA, RESPIRATIONS ARE EVEN AND UNLABORED. IV ON LAC INTACT. SAFETY MEASURES ARE IN PLACE, CALL LIGHT IS IN REACH. WILL CONTINUE TO MONITOR.
[2017-11-23 08:00] VITALS: BP_SYST 138; BP_SYST 99; BP_DIAS 67; BP_DIAS 71
[2017-11-23 08:14] VITALS: BP 138/71
[2017-11-23] MEDS: ASPIRIN 81 MG TAB.CHEW PO SCH (08:14)
[2017-11-23] MEDS: LEVOTHYROXINE SODIUM 75 MCG TABLET PO SCH (08:14)
[2017-11-23] MEDS: PANTOPRAZOLE 40 MG TABLET.DR PO SCH (08:14)
[2017-11-23] MEDS: SERTRALINE HCL 50 MG TABLET PO SCH (08:14)
[2017-11-23] MEDS: LOSARTAN POTASSIUM 50 MG TABLET PO SCH (08:14)
--- NOTE | 2017-11-23 10:32 | NUR ---
RN NOTES PT WAS DISCHARGED HOME IN STABLE CONDITION ACCOMPANIED BY CAREGIVER. PT DISCHARGE PAPERS WERE SIGNED AND TOLD TO FOLLOW UP WITH PCP WITHIN 1-2 WEEKS OF DISCHARGE. IV AND ID BAND WERE REMOVED. PRESCRIPTION WAS GIVEN TO PT TO HAVE FILLED. CAREGIVER RECEIVED DISCHARGE INSTRUCTIONS AND VERBALIZED UNDERSTANDING.
== END 2017-11-23 10:30 | disposition home or self-care (01) | DRG 380 ==
LOC: ER 08:28 → TELE 12:18 → MED 11-20 17:58
PROVIDERS: ADMIT Internal Medicine; ATTEND Internal Medicine
PROC: 0DB78ZX Excision of Stomach, Pylorus, Via Natural or Artificial Opening Endoscopic, Diagnostic (ICD-10-PCS; 2017-11-19)
PROC: 0DB28ZX Excision of Middle Esophagus, Via Natural or Artificial Opening Endoscopic, Diagnostic (ICD-10-PCS; 2017-11-19)
PROC: 0DB38ZX Excision of Lower Esophagus, Via Natural or Artificial Opening Endoscopic, Diagnostic (ICD-10-PCS; principal; 2017-11-19 09:49)
DX: K22.10 Ulcer of esophagus without bleeding (principal); I21.A1 Myocardial infarction type 2; W18.2XXA Fall in (into) shower or empty bathtub, initial encounter; E86.0 Dehydration; K29.60 Other gastritis without bleeding; D72.829 Elevated white blood cell count, unspecified; E78.5 Hyperlipidemia, unspecified; F41.9 Anxiety disorder, unspecified; I10 Essential (primary) hypertension; F12.90 Cannabis use, unspecified, uncomplicated; K44.9 Diaphragmatic hernia without obstruction or gangrene; Z87.891 Personal history of nicotine dependence; K52.9 Noninfective gastroenteritis and colitis, unspecified; Y92.002 Bathroom of unspecified non-institutional (private) residence as the place of occurrence of the external cause; Y93.E1 Activity, personal bathing and showering; E87.6 Hypokalemia; E80.6 Other disorders of bilirubin metabolism
CPT/HCPCS: 36415; 71045-TC; 75574; 76700-TC; 78226; 80048-TC; 80061-TC; 80074; 80076-TC; 81000-TC; 82746; 83540-TC; 83690-TC; 83735-TC; 84100-TC; 84132-TC; 84443-TC; 84484-TC; 85025-TC; 87081-TC; 88305-TC; 88313-TC; 88342; 93307-TC; A4606; A9537; J2060; J2405; J2765; J3480; J7030; J7050; Q9967; Z7610

== ENCOUNTER 2021-04-29 22:35 | Emergency (ER) | payer MEDICARE, OTHER ==
[~2021-04-29] VITALS: Ht 157.5 cm; Wt 65.8 kg
[2021-04-29 22:35] VITALS: BP 141/73
[~2021-04-29 22:35] MED LIST: ATOR40TA PO; LEVO75TA7 PO; LOSA1TAB36 PO; ONDA4TAB8 PO; SERT50TA PO
[2021-04-29] MEDS ORDERED: PIPERACILLIN /TAZOBACTAM 3.375 G VIAL IV ONE (23:11)
[2021-04-29] MEDS ORDERED: TDAP [DIPH/PERTUSSIS/TET] 0.5 ML VIAL IM ONE ×2 (23:12→23:30)
[2021-04-29] MEDS ORDERED: PIPERACILLIN /TAZOBACTAM 3.375 G in IV D5W 50 ML IV ONE (23:30)
[2021-04-29] MEDS ORDERED: AMOX-430 PO (23:47)
--- NOTE | 2021-04-29 23:50 | NUR ---
IV removed. Catheter intact and site benign. Pressure and 4x4 applied to site. No bleeding noted.
--- NOTE | 2021-04-29 23:53 | NUR ---
Patient discharged to home in stable condition. Written and verbal after care instructions given. Patient verbalizes understanding of instruction.
== END 2021-04-29 23:54 | disposition home or self-care (01) ==
LOC: ER 22:35
DX: S50.11XA Contusion of right forearm, initial encounter (principal); I10 Essential (primary) hypertension; Z79.899 Other long term (current) drug therapy; W55.01XA Bitten by cat, initial encounter; Y93.89 Activity, other specified; Y92.89 Other specified places as the place of occurrence of the external cause; Y99.8 Other external cause status
CPT/HCPCS: 90471; 90715; 96365; 99284; J2543; J7060

== ENCOUNTER 2022-08-30 12:47 | Inpatient (IN) | payer MEDICARE, OTHER ==
[~2022-08-30] VITALS: Ht 165.1 cm; Wt 63.2 kg
[~2022-08-30 12:47] MED LIST changes: +AMOX-430 PO
[2022-08-30] MEDS ORDERED: IV NS 0.9% 1,000 ML IV ONE ×2 (13:00→17:30)
[2022-08-30] MEDS ORDERED: ONDANSETRON HCL/PF 4 MG/2 ML VIAL ONE ×3 (13:31→21:07)
--- NOTE | 2022-08-30 13:40 | NUR ---
TO ER BED 12, BIBA RA 102 "Red Blood in stool x3 days now n/v zofran 4given en route", AAOX1, BREATHING EVEN AND NON LABORED, CONNECTED TO MONITOR
[2022-08-30] MEDS ORDERED: ONDANSETRON HCL/PF 4 MG/2 ML VIAL IV ONE ×2 (14:00→15:30)
[2022-08-30] MEDS ORDERED: AMLO-212 PO (15:00)
[2022-08-30] MEDS ORDERED: LOSA100T31 PO (15:00)
[2022-08-30] MEDS ORDERED: METF-440 PO (15:00)
[2022-08-30 15:01] LABS: ALBUMIN 4.3 g/dL (3.4-5.0); BILIRUBIN,DIRECT 0.3 mg/dL (0.0-0.2); BILIRUBIN,TOTAL 1.5 mg/dL (0.2-1.0); CALCIUM, SERUM 9.6 mg/dL (8.5-10.1); CREATININE 1.2 mg/dL (0.6-1.3); POTASSIUM 3.6 mmol/L (3.5-5.1); TOTAL PROTEIN, SERUM 8.3 g/dL (6.4-8.2)
[2022-08-30 15:21] LABS: BASOPHILS % (AUTO) 0.2 % (0.0-2.0); EOSINOPHILS % (AUTO) 0.1 % (0.0-6.0); HEMATOCRIT 44 % (33-45); HEMOGLOBIN 14.7 g/dL (11.5-14.8); LYMPHOCYTES % (AUTO) 8.4 % (20.0-44.0); MEAN CORPUSCULAR HGB CONC 33 g/dl (31.0-36.0); MEAN CORPUSCULAR VOLUME 90 fL (82-100); MONOCYTES # (AUTO) 0.3 K/uL (0.1-1.30); MONOCYTES % (AUTO) 2.2 % (2.0-12.0); NEUTROPHILS # (AUTO) 10.8 K/uL (1.8-8.9); NEUTROPHILS % (AUTO) 89.1 % (43.0-81.0); PLATELET COUNT (AUTO) 293 K/uL (150-450); RED BLOOD CELL COUNT(AUTO) 4.89 MIL/uL (4.0-5.2); WHITE BLOOD COUNT (AUTO) 12.1 K/uL (4.3-11.0)
[2022-08-30] MEDS ORDERED: IOHEXOL-300 100 ML VIAL IV ONE (15:51)
[2022-08-30] MEDS ORDERED: IV NS 0.9% 250 ML IV ONE (15:51)
[2022-08-30] MEDS ORDERED: CT SWABBABLE VALVE TRANS SET 1 EA INFUS.SET MC ONE (15:51)
[2022-08-30 16:53] LABS: BILIRUBIN,URINE NEGATIVE (NEGATIVE); COLOR,URINE YELLOW (YELLOW); LEUKOCYTE ESTERASE ,URINE TRACE (NEGATIVE); NITRITE, URINE NEGATIVE (NEGATIVE); PROTEIN,URINE 30 mg/dl (NEGATIVE); UGLUCOSE 250 MG/DL mg/dL (NEGATIVE); UROBILINOGEN,URINE 0.2 EU/dL (0.2)
[2022-08-30 17:19] LABS: BACTERIA,URINE 1+ /HPF (None Seen); CLINITEST,URINE 3/4%; RBC,URINE TOO NUMEROUS TO COUN /HPF (0-2); SQUAMOUS EPITHELIAL CELL,UR Few /HPF (None Seen); WBC,URINE 21-50 /HPF (0-3)
[2022-08-30] MEDS ORDERED: CIPROFLOXACIN IV RTU 400 MG in PREMIX 1 EA IV SCH (17:30)
[2022-08-30] MEDS ORDERED: METRONIDAZOLE 500MG/ NS 100ML 500 MG in PREMIX 1 EA IV SCH (17:30)
[2022-08-30] MEDS ORDERED: METRONIDAZOLE 500MG/ NS 100ML 100 ML IV ONE (17:52)
[2022-08-30] MEDS ORDERED: CIPROFLOXACIN IV RTU 200 ML IV ONE (17:52)
--- NOTE | 2022-08-30 18:15 | NUR ---
COVID SWAB DONE AND SENT TO LAB
[2022-08-30] MEDS ORDERED: ACETAMINOPHEN 325 MG TABLET PO PRN (18:30)
[2022-08-30] MEDS ORDERED: Z GUARD REMEDY 4 OZ OINT TP PRN (18:30)
[2022-08-30] MEDS ORDERED: MAGNESIUM HYDROXIDE 30 ML UDC PO PRN (18:30)
[2022-08-30] MEDS ORDERED: HYDROCODONE/APAP 5/325MG TABLET PO PRN (18:30)
[2022-08-30] MEDS ORDERED: LORAZEPAM INJ 2 MG/ML VIAL IV PRN (18:30)
[2022-08-30] MEDS ORDERED: MAG HYDROX/AL HYDROX/SIMETH 30 ML UDC PO PRN (18:30)
[2022-08-30] MEDS ORDERED: DEXTROSE 50%-WATER 50 ML DISP.SYRIN IV PRN (19:00)
--- NOTE | 2022-08-30 19:49 | NUR ---
LAQUITA- DAUGHTER [phone]
[2022-08-30] MEDS ORDERED: CEFTRIAXONE 1GM BAG (ER ONLY) 50 ML IV ONE (21:00)
[2022-08-30] MEDS ORDERED: CEFTRIAXONE 1 G in IV D5W 50 ML IV SCH (21:00)
[2022-08-30] MEDS ORDERED: ATORVASTATIN 40 MG TABLET ONE (21:27)
[2022-08-30] MEDS: BLOOD SUGAR DIAGNOSTIC 1 EACH STRIP IN SCH (21:31)
[2022-08-30] MEDS: ATORVASTATIN 40 MG TABLET PO SCH (21:31)
[2022-08-30] MEDS ORDERED: INSULIN REGULAR, HUMAN 100 UNIT/ML 10 ML VIAL ONE (21:33)
--- NOTE | 2022-08-30 21:38 | NUR ---
bed 306-2
[2022-08-30] MEDS: INSULIN REGULAR, HUMAN 100 UNIT/ML 3 ML VIAL SQ PRN (21:39)
--- NOTE | 2022-08-30 22:03 | NUR ---
REPORT GIVEN TO FILOMENA
--- NOTE | 2022-08-30 23:00 | NUR ---
pt transported to room 323 via rney in stable condition
--- NOTE | 2022-08-30 23:11 | NUR ---
MS VALVE MECHANIC NOTE: PATIENT BROUGHT UP FROM ER TO MED/SURG ROOM 306-2 AT 10:30 PM. PATIENT IS STABLE ON RA; SpO2=97%. BREATHING IS EVEN AND UNLABORED. PATIENT HAS A DRY AND UNPRODUCTIVE COUGH. IV ACCESS TO LAC, 20G WITH NS RUNNING AT 75ML/HR. SKIN IS INTACT. PATIENT IS ORIENTED TO ROOM, UNIT AND STAFF. PATIENT BELONGINGS ACCOUNTED FOR AND BELONGING LIST SIGNED. SAFETY MEASURES IN PLACE: BED IN LOWEST AND LOCKED POSITION, SIDE RAILS UP X 2, CALL LIGHT AND TRAY TABLE WITHIN EASY REACH. WILL CONTINUE TO MONITOR
[2022-08-31] MEDS ORDERED: CLONIDINE HCL 0.1 MG TABLET PO PRN
[2022-08-31] MEDS: IV NS 0.9% 1,000 ML IV PRN ×2 (01:55→21:12)
[2022-08-31] MEDS ORDERED: METRONIDAZOLE 500MG/ NS 100ML 500 MG in PREMIX 1 EA IV SCH (02:00)
[2022-08-31 02:06] VITALS: BP 169/52
[2022-08-31] MEDS ORDERED: METRONIDAZOLE 500MG/ NS 100ML 100 ML IV ONE (02:49)
--- NOTE | 2022-08-31 02:58 | NUR ---
RN NOTE MEDICATION NOT AVAILABLE AT THIS TIME. PENDING NURSING CLERICAL TRANSCRIBER BRINGING MEDICATION TO THE FLOOR. WILL ADMINISTER ONCE AVAILABLE.
[2022-08-31 05:59] LABS: BASOPHILS % (AUTO) 0.1 % (0.0-2.0); HEMATOCRIT 39 % (33-45); HEMOGLOBIN 12.3 g/dL (11.5-14.8); LYMPHOCYTES # (AUTO) 1.4 K/uL (0.8-4.8); LYMPHOCYTES % (AUTO) 7.6 % (20.0-44.0); MEAN CORPUSCULAR HGB CONC 32 g/dl (31.0-36.0); MEAN CORPUSCULAR VOLUME 94 fL (82-100); MONOCYTES % (AUTO) 5.6 % (2.0-12.0); NEUTROPHILS # (AUTO) 15.5 K/uL (1.8-8.9); NEUTROPHILS % (AUTO) 86.7 % (43.0-81.0); PLATELET COUNT (AUTO) 219 K/uL (150-450); RED BLOOD CELL COUNT(AUTO) 4.13 MIL/uL (4.0-5.2); WHITE BLOOD COUNT (AUTO) 17.9 K/uL (4.3-11.0)
[2022-08-31] MEDS: BLOOD SUGAR DIAGNOSTIC 1 EACH STRIP IN SCH ×4 (06:30→21:31)
[2022-08-31] MEDS: INSULIN REGULAR, HUMAN 100 UNIT/ML 3 ML VIAL SQ PRN ×2 (06:37→17:23)
--- NOTE | 2022-08-31 06:46 | NUR ---
MS RN CLOSING NOTE: PATIENT IS A/O X 3, PLEASANT AND COOPERATIVE. SHE IS STABLE ON RA; SpO2=97%. BREATHING IS EVEN AND UNLABORED. IV ACCESS TO LAC, 20G WITH NS RUNNING AT 75ML/HR. SKIN IS INTACT. PATIENT HAS ACCUCHECKS AC AND HS WITH SLIDING SCALE INSULIN FOR COVERAGE. IV ANTIBIOTICS ORDERED FOR UTI AND COLITIS DIAGNOSIS. SAFETY MEASURES IN PLACE: BED IN LOWEST AND LOCKED POSITION, SIDE RAILS UP X 2, CALL LIGHT AND TRAY TABLE WITHIN EASY REACH. WILL ENDORSE TO NEXT SHIFT FOR AMRIT.
--- NOTE | 2022-08-31 07:35 | NUR ---
MS RN OPENING NOTE: RECEIVED PATIENT ON BED AWAKE VERBALLY RESPONSIVE AND A/O X 3,STABLE ON RA; SpO2=95%. BREATHING IS EVEN AND UNLABORED. IV ACCESS TO LAC, 20G WITH NS RUNNING AT 75ML/HR. SKIN IS INTACT. NO C/O OF PAIN AND DISCOMFORT , . SAFETY MEASURES IN PLACE: BED IN LOWEST AND LOCKED POSITION, SIDE RAILS UP X 2, CALL LIGHT AND TRAY TABLE WITHIN EASY REACH. WILL CONTINUE TO MONITOR
[2022-08-31] MEDS: PANTOPRAZOLE 40 MG TABLET.DR PO SCH (07:46)
[2022-08-31] MEDS: LEVOTHYROXINE SODIUM 75 MCG TABLET PO SCH (07:47)
[2022-08-31 08:13] VITALS: BP_SYST 146; BP_SYST 160; BP_DIAS 60
[2022-08-31 08:30] LABS: CALCIUM, SERUM 8.2 mg/dL (8.5-10.1); MAGNESIUM 1.8 mg/dL (1.8-2.4); PHOSPHORUS 2.7 mg/dL (2.5-4.9); POTASSIUM 2.9 mmol/L (3.5-5.1)
[2022-08-31] MEDS ORDERED: POTASSIUM CHLORIDE 20 MEQ POWDER PACKET PO ONE (09:00)
[2022-08-31] MEDS: SERTRALINE HCL 50 MG TABLET PO SCH (09:02)
[2022-08-31] MEDS: LOSARTAN POTASSIUM 25 MG TABLET PO SCH (09:02)
[2022-08-31] MEDS: AMLODIPINE BESYLATE 5 MG TABLET PO SCH (09:03)
[2022-08-31 09:08] LABS: THYROID STIMULATING HORMONE 3.361 uIU/mL (0.358-3.74)
[2022-08-31] MEDS: POTASSIUM CL. PREMIX PERIPHER. 50 ML IV SCH ×4 (09:58→14:03)
[2022-08-31] MEDS: ONDANSETRON HCL/PF 4 MG/2 ML VIAL IVP PRN ×2 (10:27→14:39)
[2022-08-31] MEDS: PIPERACILLIN /TAZOBACTAM 3.375 G in IV D5W 50 ML IV SCH ×2 (10:32→16:10)
[2022-08-31] MEDS ORDERED: METOCLOPRAMIDE HCL 10 MG/2 ML VIAL IV ONE (12:00)
--- NOTE | 2022-08-31 13:00 | NUR ---
RN NOTES PATIENT WITH BLOOD SUGAR OF 137 AND REFUSED THE INSULIN
[2022-08-31 15:49] VITALS: BP 182/67
--- NOTE | 2022-08-31 18:41 | NUR ---
MS RN CLOSING NOTE: PATIENT ON BED AWAKE VERBALLY RESPONSIVE AND A/O X 4 ,STABLE ON RA; SpO2=98 %. BREATHING IS EVEN AND UNLABORED. IV ACCESS TO LAC, 20G WITH NS RUNNING AT 75ML/HR. SKIN IS INTACT. NO C/O OF PAIN AND DISCOMFORT , ALL DUE MEDS GIVEN , C/O OF NAUSEA AND DUE MEDS GIVEN WITH HELP , NOTED WITH LOW K AND K REPLACED , STOOL STILL NOTED WITH BLOODY FLUID AND CLOTS DURING BM , CONTINUE ON CLEAR LIQUID DIET ORDERED , SAFETY MEASURES IN PLACE: BED IN LOWEST AND LOCKED POSITION, SIDE RAILS UP X 2, CALL LIGHT AND TRAY TABLE WITHIN EASY REACH. WILL CONTINUE TO MONITOR
--- NOTE | 2022-08-31 19:30 | NUR ---
MS RN OPENING NOTE RECEIVED PATIENT IN BED; AWAKE, ALERT AND ORIENTED X 4. ON ROOM AIR; TOLERATING WELL. BREATHING EVEN AND NONLABORED. NOT IN ANY FORM OF RESPIRATORY DISTRESS. DENIES ANY PAIN OR DISCOMFORT AT THIS TIME. WITH IV ACCESS ON RIGHT HAND 22g; PATENT AND INTACT INFUSING WITH NS RUNNING @ 75 ML/HR; FLUSHES WELL. NO INFILTRATION NOTED. ABLE TO MAKE NEEDS KNOWN. SAFETY MEASURES IMPLEMENTED: CALL LIGHT AND TABLE WITHIN REACH, SIDE RAILS UP X 2, BED IN LOWEST LOCKED POSITION. WILL CONTINUE TO MONITOR.
[2022-08-31 20:00] VITALS: BP 154/70
--- NOTE | 2022-08-31 21:31 | NUR ---
RN NOTE BLOOD SUGAR CHECKED -101 MG/DL. NO INSULIN COVERAGE GIVEN.
[2022-08-31] MEDS: ATORVASTATIN 40 MG TABLET PO SCH (22:00)
[2022-09-01] MEDS: PIPERACILLIN /TAZOBACTAM 3.375 G in IV D5W 50 ML IV SCH ×3 (01:13→17:04)
--- NOTE | 2022-09-01 01:47 | NUR ---
RN NOTE PATIENT REFUSED TO RECEIVE ZOSYN IV AND REQUESTING TO HAVE AN ORAL ANTIBIOTIC INSTEAD. WEAVING SUPERVISOR HOSPITALIST LISA FORD MADE AWARE; WITH ORDER TO FOLLOW UP WITH ID IN AM.
--- NOTE | 2022-09-01 05:40 | NUR ---
RN NOTE PATIENT C/O ABDOMINAL PAIN 05/27. NORCO 325 MG GIVEN PO; TOLERATED WELL. WILL CONTINUE TO MONITOR AND REASSESS PT.
[2022-09-01] MEDS: BLOOD SUGAR DIAGNOSTIC 1 EACH STRIP IN SCH ×4 (05:56→22:19)
--- NOTE | 2022-09-01 05:57 | NUR ---
RN NOTE BLOOD SUGAR CHECKED -127 MG/DL. NO INSULIN COVERAGE GIVEN.
[2022-09-01 06:31] LABS: BASOPHILS % (AUTO) 0.2 % (0.0-2.0); HEMATOCRIT 36 % (33-45); HEMOGLOBIN 11.6 g/dL (11.5-14.8); LYMPHOCYTES # (AUTO) 2.2 K/uL (0.8-4.8); LYMPHOCYTES % (AUTO) 11.8 % (20.0-44.0); MEAN CORPUSCULAR HGB CONC 32 g/dl (31.0-36.0); MEAN CORPUSCULAR VOLUME 92 fL (82-100); MONOCYTES % (AUTO) 5.4 % (2.0-12.0); NEUTROPHILS # (AUTO) 15.3 K/uL (1.8-8.9); NEUTROPHILS % (AUTO) 82.6 % (43.0-81.0); PLATELET COUNT (AUTO) 212 K/uL (150-450); WHITE BLOOD COUNT (AUTO) 18.5 K/uL (4.3-11.0)
[2022-09-01 06:42] LABS: CALCIUM, SERUM 8.3 mg/dL (8.5-10.1); CARBON DIOXIDE 25 mmol/L (21-32); CHLORIDE 104 mmol/L (98-107); GLUCOSE 125 mg/dL (74-106); SODIUM SERUM 141 mmol/L (136-145); UREA NITROGEN, BLOOD 11 mg/dL (7-18)
--- NOTE | 2022-09-01 07:30 | NUR ---
RN OPENING NOTES RECEIVED PATIENT IN BED AWAKE, A/O X4, VERBALLY RESPONSIVE. NO SIGNS OF ACUTE DISTRESS NOTED. ON ROOM AIR, TOLERATING WELL. NO C/O PAIN AT THIS TIME. NOTED WITH IV ACCESS ON RIGHT HAND #22G. IVF STOP PER NOC NURSE PT C/O PAIN ON IV SITE. ASSESSED SITE, IV ACCESS PATENT, NO SIGNS OF INFILTRATION NOTED BUT PT STILL C/O SLIGHT PAIN AND ASK TO ASK MD IF WE COULD JUST CHANGE IV ABX TO PO. WILL INFORM MD. SAFETY MEASURE IN PLACE. BED IN LOWEST AND LOCKED POSITION, SIDE RAILS UP X2, CALL LIGHT PLACED WITHIN EASY REACH. WILL CONTINUE TO MONITOR PAT.
--- NOTE | 2022-09-01 07:41 | NUR ---
MS RN CLOSING NOTE PATIENT IN BED; AWAKE, A/O X 4. STABLE ON ROOM AIR. BREATHING EVEN AND NONLABORED. NOT IN ANY FORM OF RESPIRATORY DISTRESS. DENIES ANY PAIN OR DISCOMFORT AT THIS TIME. WITH IV ACCESS ON RIGHT HAND 22g; PATENT AND INTACT. SAFETY MEASURES MAINTAINED: CALL LIGHT AND TABLE WITHIN REACH, SIDE RAILS UP X 2, BED IN LOWEST LOCKED POSITION. ENDORSED TO MORNING SHIFT FOR AMRIT.
[2022-09-01] MEDS: PANTOPRAZOLE 40 MG TABLET.DR PO SCH (07:58)
[2022-09-01] MEDS: LEVOTHYROXINE SODIUM 75 MCG TABLET PO SCH (07:58)
[2022-09-01 08:00] VITALS: BP 133/50
[2022-09-01] MEDS: SERTRALINE HCL 50 MG TABLET PO SCH (08:35)
[2022-09-01] MEDS: AMLODIPINE BESYLATE 5 MG TABLET PO SCH (08:35)
[2022-09-01] MEDS: LOSARTAN POTASSIUM 25 MG TABLET PO SCH (08:36)
--- NOTE | 2022-09-01 09:00 | NUR ---
RN NOTES NEW PERIPHERAL LINE INSERTED ON LEFT FOREARM #20G, WITH GOOD BLOOD RETURN, COVERED WITH TRANSPARENT DRESSING. PROCEDURE TOLERATED WELL. OLD IV LINE ON RIGHT HAND REMOVED, NO BLEEDING NOTED. PRESSURE DRESSING APPLIED. IV OF NS @ 75ML/HR RESTARTED.
[2022-09-01] MEDS ORDERED: POTASSIUM CHLORIDE 20 MEQ POWDER PACKET PO ONE (11:00)
[2022-09-01] MEDS: INSULIN REGULAR, HUMAN 100 UNIT/ML 3 ML VIAL SQ PRN ×3 (11:38→22:42)
[2022-09-01] MEDS ORDERED: POTASSIUM CHLORIDE 20 MEQ TAB.PRT.SR PO ONE (15:00)
[2022-09-01] MEDS: MORPHINE SULFATE INJ 2 MG/ML DISP.SYRIN IV PRN (15:06)
--- NOTE | 2022-09-01 15:06 | NUR ---
RN NOTE MORPHINE 2 MG IVP GIVEN FOR C/O ABDOMINAL PAIN. WILL CONTINUE TO MONITOR PATIENT.
[2022-09-01 16:00] VITALS: BP 131/52
[2022-09-01] MEDS ORDERED: ACIDOPHILUS/BULGARICUS 1 EACH GRAN.PACK PO SCH (17:00)
[2022-09-01] MEDS: ACIDOPHILUS/BULGARICUS 1 EACH TAB.CHEW PO SCH (17:04)
--- NOTE | 2022-09-01 18:45 | NUR ---
RN CLOSING NOTES PATIENT RESTING IN BED, NO SIGNS OF ACUTE DISTRESS NOTED. REMAINS STABLE ON ROOM AIR, SPO2 @96% BUT PATIENT REQUESTED TO BE PUT ON O2 INHALATION @2LPM VIA N/C FOR COMFORT WHILE SHE SLEEPS. NO SOB NOTED, BREATHING EVEN AND UNLABORED. IV ACCESS ON LEFT FOREARM #20G, INTACT AND PATEN, WITH NS @ 75 ML/HR INFUSING WELL. ALL DUE MEDS GIVEN, TOLERATED WELL. SAFETY MEASURE MAINTAINED. BED IN LOWEST AND LOCKED POSITION, SIDE RAILS UP X2, CALL LIGHT PLACED WITHIN EASY REACH. WILL ENDORSE TO NEXT SHIFT FOR CONTINUITY OF CARE.
--- NOTE | 2022-09-01 19:33 | NUR ---
RN OPENING NOTES PATIENT RESTING IN BED, NO SIGNS OF ACUTE DISTRESS NOTED. REMAINS STABLE ON ROOM AIR, SPO2 @96% BUT PATIENT REQUESTED TO BE PUT ON O2 INHALATION @2LPM VIA N/C FOR COMFORT WHILE SHE SLEEPS. NO SOB NOTED, BREATHING EVEN AND UNLABORED. IV ACCESS ON LEFT FOREARM #20G, INTACT AND PATEN, WITH NS @ 75 ML/HR INFUSING WELL. TOLERATED WELL. SAFETY MEASURE MAINTAINED. BED IN LOWEST AND LOCKED POSITION, SIDE RAILS UP X2, CALL LIGHT PLACED WITHIN EASY REACH.
[2022-09-01 20:00] VITALS: BP 144/53
[2022-09-01] MEDS: ATORVASTATIN 40 MG TABLET PO SCH (22:19)
[2022-09-01] MEDS: METRONIDAZOLE 500 MG TABLET PO SCH (22:19)
[2022-09-01] MEDS ORDERED: CEFEPIME 1 GM VIAL ONE (23:23)
[2022-09-01] MEDS: CEFEPIME 1 GM in IV D5W 50 ML IV SCH (23:47)
[2022-09-02] MEDS: METRONIDAZOLE 500 MG TABLET PO SCH ×3 (04:23→21:37)
[2022-09-02] MEDS: MORPHINE SULFATE INJ 2 MG/ML DISP.SYRIN IV PRN ×2 (04:23→10:36)
[2022-09-02 06:10] LABS: BASOPHILS # (AUTO) 0.1 K/uL (0.0-0.2); BASOPHILS % (AUTO) 0.4 % (0.0-2.0); EOSINOPHILS % (AUTO) 0.1 % (0.0-6.0); HEMATOCRIT 34 % (33-45); HEMOGLOBIN 11.1 g/dL (11.5-14.8); LYMPHOCYTES # (AUTO) 1.6 K/uL (0.8-4.8); LYMPHOCYTES % (AUTO) 9.9 % (20.0-44.0); MEAN CORPUSCULAR HGB CONC 33 g/dl (31.0-36.0); MEAN CORPUSCULAR VOLUME 93 fL (82-100); MONOCYTES # (AUTO) 0.9 K/uL (0.1-1.30); MONOCYTES % (AUTO) 5.7 % (2.0-12.0); NEUTROPHILS # (AUTO) 13.6 K/uL (1.8-8.9); NEUTROPHILS % (AUTO) 83.9 % (43.0-81.0); PLATELET COUNT (AUTO) 194 K/uL (150-450); RED BLOOD CELL COUNT(AUTO) 3.66 MIL/uL (4.0-5.2); WHITE BLOOD COUNT (AUTO) 16.3 K/uL (4.3-11.0)
[2022-09-02 06:20] LABS: CALCIUM, SERUM 7.8 mg/dL (8.5-10.1); CARBON DIOXIDE 23 mmol/L (21-32); CHLORIDE 106 mmol/L (98-107); CREATININE 0.9 mg/dL (0.6-1.3); GLUCOSE 140 mg/dL (74-106); POTASSIUM 3.5 mmol/L (3.5-5.1); SODIUM SERUM 136 mmol/L (136-145); UREA NITROGEN, BLOOD 10 mg/dL (7-18)
[2022-09-02] MEDS: BLOOD SUGAR DIAGNOSTIC 1 EACH STRIP IN SCH ×4 (06:30→21:45)
[2022-09-02] MEDS: INSULIN REGULAR, HUMAN 100 UNIT/ML 3 ML VIAL SQ PRN ×3 (06:32→16:49)
--- NOTE | 2022-09-02 06:35 | NUR ---
RN OPENING NOTES PATIENT RESTING IN BED, NO SIGNS OF ACUTE DISTRESS NOTED. REMAINS STABLE ON ROOM AIR. NO SOB NOTED, BREATHING EVEN AND UNLABORED. IV ACCESS ON LEFT FOREARM #20G, INTACT AND PATEN, WITH NS @ 75 ML/HR INFUSING WELL. TOLERATED WELL. SAFETY MEASURE MAINTAINED. BED IN LOWEST AND LOCKED POSITION, SIDE RAILS UP X2, CALL LIGHT PLACED WITHIN EASY REACH.WILL ENDORSE CARE TO DAY SHIFT NURSE.
--- NOTE | 2022-09-02 07:22 | NUR ---
MS RN OPENING NOTES RECEIVED PATIENT AWAKE, RESTING IN BED. PT A/O X4, ABLE TO MAKE NEED KNOWN. ON RA, TOLERATING WELL. NO SOB NOTED. NOT IN ANY SIGNS OF ACUTE DISTRESS NOTED. IV ACCESS ON LEFT FOREARM #20G, INTACT AND PATENT, WITH NS INFUSING AT 75 ML/HR. SAFETY MEASURE MAINTAINED. BED IN LOWEST AND LOCKED POSITION, SIDE RAILS UP X2, AND CALL LIGHT PLACED WITHIN EASY REACH. WILL CONTINUE TO MONITOR PT.
[2022-09-02 08:00] VITALS: BP 121/47
[2022-09-02] MEDS: PANTOPRAZOLE 40 MG TABLET.DR PO SCH (08:26)
[2022-09-02] MEDS: LEVOTHYROXINE SODIUM 75 MCG TABLET PO SCH (08:26)
[2022-09-02] MEDS: ACIDOPHILUS/BULGARICUS 1 EACH TAB.CHEW PO SCH ×2 (08:27→16:05)
[2022-09-02] MEDS: AMLODIPINE BESYLATE 5 MG TABLET PO SCH (08:28)
[2022-09-02] MEDS: SERTRALINE HCL 50 MG TABLET PO SCH (08:28)
[2022-09-02] MEDS: LOSARTAN POTASSIUM 25 MG TABLET PO SCH (08:28)
[2022-09-02] MEDS: CEFEPIME 1 GM in IV D5W 50 ML IV SCH ×2 (10:36→22:10)
[2022-09-02] MEDS: IV NS 0.9% 1,000 ML IV PRN (10:36)
--- NOTE | 2022-09-02 10:40 | NUR ---
RN NOTE PT C/O ABDOMINAL PAIN WITH PAIN SCALE LEVEL OF 8/10. MORPHINE 2MG IVP GIVEN ORDERED PRN Q4H FOR SEVERE PAIN. WILL MONITOR AND REASSESS PT.
[2022-09-02 16:00] VITALS: BP 130/49
--- NOTE | 2022-09-02 19:21 | NUR ---
MS RN CLOSING NOTES PATIENT AWAKE, RESTING IN BED. PT A/O X4, ABLE TO MAKE NEED KNOWN. ON RA, TOLERATING WELL. NO SOB NOTED. NOT IN ANY SIGNS OF ACUTE DISTRESS NOTED. IV ACCESS ON LEFT FOREARM #20G, INTACT AND PATENT, WITH NS INFUSING AT 75 ML/HR. ALL NEEDS ATTENDED. KEPT CLEAN AND COMFORTABLE. SAFETY MEASURE MAINTAINED. BED IN LOWEST AND LOCKED POSITION, SIDE RAILS UP X2, AND CALL LIGHT PLACED WITHIN EASY REACH. ENDORSED TO BI SPECIALIST NURSE FOR [facility].
--- NOTE | 2022-09-02 19:30 | NUR ---
MS RN OPENING NOTE RECEIVED PT AWAKE IN BED, AT BEDSIDE. A/O X4 AND ABLE TO MAKE NEEDS KNOWN. PT STABLE ON ROOM AIR. NO SOB OR S/S OF RESPIRATORY DISTRESS. BREATHING EVEN AND UNLABORED. IV ACCESS LFA 20G, INTACT AND PATENT, RUNNING NS @ 75 ML/HR. SAFETY PRECAUTIONS IN PLACE. BED IN LOWEST LOCKED POSITION, HOB ELEVATED, SIDE RAILS UP X2, AND CALL LIGHT AND TABLE WITHIN REACH. ALL NEEDS MET AT THIS TIME.
[2022-09-02 20:00] VITALS: BP 161/50
[2022-09-02] MEDS: ATORVASTATIN 40 MG TABLET PO SCH (21:37)
[2022-09-02] MEDS: TEMAZEPAM 15 MG CAPSULE PO PRN (21:49)
--- NOTE | 2022-09-02 21:49 | NUR ---
RN NOTE PT STATED "I HAVE NOT GOT A GOOD NIGHTS SLEEP SINCE I HAVE BEEN HERE". INFORMED THE PATIENT THAT THE DOCTOR ORDERED SLEEPING MEDICATION FOR FOR INSOMNIA. PT STATED SHE WOULD LIKE TO TRY IT. ADMINISTERED RESTORIL 15 MG ORDERED FOR INSOMNIA. MADE COMFORTABLE IN BED. ALL NEEDS MET AT THIS TIME.
[2022-09-03] MEDS: METRONIDAZOLE 500 MG TABLET PO SCH ×3 (04:21→21:14)
[2022-09-03] MEDS: IV NS 0.9% 1,000 ML IV PRN (04:23)
[2022-09-03] MEDS: MORPHINE SULFATE INJ 2 MG/ML DISP.SYRIN IV PRN ×4 (04:35→16:41)
--- NOTE | 2022-09-03 04:35 | NUR ---
RN NOTE PT COMPLAINED OF ABDOMINAL PAIN 06/27. ADMINISTERED MORPHINE 2 MG FOR SEVERE PAIN ORDERED. MADE COMFORTABLE IN BED. ALL NEEDS MET AT THIS TIME.
[2022-09-03 05:59] LABS: BASOPHILS % (AUTO) 0.4 % (0.0-2.0); EOSINOPHILS % (AUTO) 1.9 % (0.0-6.0); HEMATOCRIT 34 % (33-45); HEMOGLOBIN 11.1 g/dL (11.5-14.8); LYMPHOCYTES # (AUTO) 1.7 K/uL (0.8-4.8); LYMPHOCYTES % (AUTO) 14.1 % (20.0-44.0); MEAN CORPUSCULAR HGB CONC 33 g/dl (31.0-36.0); MEAN CORPUSCULAR VOLUME 92 fL (82-100); MONOCYTES # (AUTO) 0.8 K/uL (0.1-1.30); MONOCYTES % (AUTO) 6.6 % (2.0-12.0); NEUTROPHILS # (AUTO) 9.3 K/uL (1.8-8.9); PLATELET COUNT (AUTO) 191 K/uL (150-450); RED BLOOD CELL COUNT(AUTO) 3.69 MIL/uL (4.0-5.2); WHITE BLOOD COUNT (AUTO) 12.1 K/uL (4.3-11.0)
[2022-09-03] MEDS: BLOOD SUGAR DIAGNOSTIC 1 EACH STRIP IN SCH ×4 (06:39→21:24)
[2022-09-03 06:43] LABS: CALCIUM, SERUM 7.9 mg/dL (8.5-10.1); POTASSIUM 3.1 mmol/L (3.5-5.1)
--- NOTE | 2022-09-03 07:11 | NUR ---
MS RN CLOSING NOTE PT AWAKE IN BED, AT BEDSIDE. A/O X4 AND ABLE TO MAKE NEEDS KNOWN. PT STABLE ON ROOM AIR. NO SOB OR S/S OF RESPIRATORY DISTRESS. BREATHING EVEN AND UNLABORED. IV ACCESS RFA 22G, INTACT AND PATENT, RUNNING NS @ 75 ML/HR. ALL DUE MEDS GIVEN ORDERED. SAFETY PRECAUTIONS IN PLACE AT ALL TIMES. BED IN LOWEST LOCKED POSITION, HOB ELEVATED, SIDE RAILS UP X2, AND CALL LIGHT AND TABLE WITHIN REACH. ALL NEEDS MET AT THIS TIME AND WILL ENDORSE TO ONCOMING NURSE FOR [facility].
--- NOTE | 2022-09-03 07:30 | NUR ---
MS RN OPENING NOTE PT AWAKE IN BED, A/O X4 AND ABLE TO MAKE NEEDS KNOWN. PT STABLE ON ROOM AIR. NO SOB OR S/S OF RESPIRATORY DISTRESS. BREATHING EVEN AND UNLABORED. IV ACCESS RFA 22G, INTACT AND PATENT, RUNNING NS @ 75 ML/HR. SAFETY PRECAUTIONS IN PLACE AT ALL TIMES. BED IN LOWEST LOCKED POSITION, HOB ELEVATED, SIDE RAILS UP X2, AND CALL LIGHT AND TABLE WITHIN REACH. WILL MONITOR
[2022-09-03 08:00] VITALS: BP 134/55
[2022-09-03] MEDS: LEVOTHYROXINE SODIUM 75 MCG TABLET PO SCH (08:15)
[2022-09-03] MEDS: PANTOPRAZOLE 40 MG TABLET.DR PO SCH (08:15)
[2022-09-03] MEDS: ACIDOPHILUS/BULGARICUS 1 EACH TAB.CHEW PO SCH ×2 (08:20→17:07)
[2022-09-03] MEDS: SERTRALINE HCL 50 MG TABLET PO SCH (08:21)
[2022-09-03] MEDS: LOSARTAN POTASSIUM 25 MG TABLET PO SCH (08:21)
[2022-09-03] MEDS: AMLODIPINE BESYLATE 5 MG TABLET PO SCH (09:30)
[2022-09-03] MEDS ORDERED: POTASSIUM CHLORIDE 20 MEQ POWDER PACKET PO SCH (10:00)
[2022-09-03] MEDS: CEFEPIME 1 GM in IV D5W 50 ML IV SCH (10:01)
[2022-09-03] MEDS: INSULIN REGULAR, HUMAN 100 UNIT/ML 3 ML VIAL SQ PRN ×3 (12:00→21:50)
[2022-09-03] MEDS: LEVOFLOXACIN 500 MG /D5W 100ML 500 MG in PREMIX 1 EA IV SCH (13:35)
[2022-09-03 16:00] VITALS: BP 146/67
--- NOTE | 2022-09-03 18:23 | NUR ---
MS RN CLOSING NOTE PT AWAKE IN BED, A/O X4 AND ABLE TO MAKE NEEDS KNOWN. PT STABLE ON ROOM AIR. NO SOB OR S/S OF RESPIRATORY DISTRESS. BREATHING EVEN AND UNLABORED. IV ACCESS RFA 22G, INTACT AND PATENT, RUNNING NS @ 75 ML/HR. COMPLAINED OF ABDOMINAL PAIN, PRN MEDS GIVEN WITH GOOD EFFECT. DUE MEDS GIVEN. KEPT COMFORTABLE. PATIENT NEEDS OUTPATIENT REFERRAL TO REFINERY OPERATOR ORDERED. SAFETY PRECAUTIONS IN PLACE AT ALL TIMES. BED IN LOWEST LOCKED POSITION, HOB ELEVATED, SIDE RAILS UP X2, AND CALL LIGHT AND TABLE WITHIN REACH. ENDORSED.
--- NOTE | 2022-09-03 19:30 | NUR ---
MS RN OPENING NOTE RECEIVED PT AWAKE IN BED. A/O X4 AND ABLE TO MAKE NEEDS KNOWN. PT STABLE ON ROOM AIR. NO SOB OR S/S OF RESPIRATORY DISTRESS. BREATHING EVEN AND UNLABORED. IV ACCESS LFA 20G, INTACT AND PATENT, RUNNING NS @ 75 ML/HR. SAFETY PRECAUTIONS IN PLACE. BED IN LOWEST LOCKED POSITION, HOB ELEVATED, SIDE RAILS UP X2, AND CALL LIGHT AND TABLE WITHIN REACH. ALL NEEDS MET AT THIS TIME.
[2022-09-03 20:00] VITALS: BP 137/63
[2022-09-03] MEDS: ATORVASTATIN 40 MG TABLET PO SCH (21:14)
[2022-09-03] MEDS: TEMAZEPAM 15 MG CAPSULE PO PRN (23:00)
[2022-09-04] MEDS: METRONIDAZOLE 500 MG TABLET PO SCH ×3 (04:42→21:36)
[2022-09-04 06:12] LABS: CARBON DIOXIDE 29 mmol/L (21-32); CHLORIDE 106 mmol/L (98-107); GLUCOSE 136 mg/dL (74-106); SODIUM SERUM 138 mmol/L (136-145); UREA NITROGEN, BLOOD 9 mg/dL (7-18)
[2022-09-04 06:32] LABS: POTASSIUM 2.7 mmol/L (3.5-5.1)
[2022-09-04] MEDS: BLOOD SUGAR DIAGNOSTIC 1 EACH STRIP IN SCH ×4 (06:39→21:58)
--- NOTE | 2022-09-04 06:40 | NUR ---
RN NOTE POTASSIUM 2.7. INFORMED VIDEO CLERK KE WITH NEW ORDERS NOTED AND CARRIED OUT. CHARGE NURSE JENNIFER JAMA.
--- NOTE | 2022-09-04 06:48 | NUR ---
MS RN CLOSING NOTE PT AWAKE IN BED. A/O X4 AND ABLE TO MAKE NEEDS KNOWN. PT STABLE ON ROOM AIR. NO SOB OR S/S OF RESPIRATORY DISTRESS. BREATHING EVEN AND UNLABORED. IV ACCESS LFA 20G, INTACT AND PATENT, RUNNING NS @ 75 ML/HR. ALL DUE MEDS GIVEN ORDERED. SAFETY PRECAUTIONS IN PLACE AT ALL TIMES. BED IN LOWEST LOCKED POSITION, HOB ELEVATED, SIDE RAILS UP X2, AND CALL LIGHT AND TABLE WITHIN REACH. ALL NEEDS MET AT THIS TIME AND WILL ENDORSE TO ONCOMING NURSE FOR [facility].
--- NOTE | 2022-09-04 07:20 | NUR ---
MS RN OPENING NOTE RECEIVED PATIENT IN BED; AWAKE, ALERT AND ORIENTED X 4. ON ROOM AIR; TOLERATING WELL. BREATHING EVEN AND NONLABORED. NOT IN ANY FORM OF RESPIRATORY DISTRESS. WITH IV ACCESS ON RIGHT HAND 22g; PATENT AND INTACT INFUSING WITH NS RUNNING @ 75 ML/HR; FLUSHES WELL. NO INFILTRATION NOTED. ABLE TO MAKE NEEDS KNOWN. SAFETY MEASURES IMPLEMENTED: CALL LIGHT AND TABLE WITHIN REACH, SIDE RAILS UP X 2, BED IN LOWEST LOCKED POSITION. WILL CONTINUE TO MONITOR.
[2022-09-04 08:00] VITALS: BP 151/69
[2022-09-04 08:08] LABS: BASOPHILS # (AUTO) 0.1 K/uL (0.0-0.2); BASOPHILS % (AUTO) 0.6 % (0.0-2.0); EOSINOPHILS % (AUTO) 2.5 % (0.0-6.0); HEMATOCRIT 37 % (33-45); HEMOGLOBIN 11.8 g/dL (11.5-14.8); LYMPHOCYTES # (AUTO) 2.1 K/uL (0.8-4.8); LYMPHOCYTES % (AUTO) 18.7 % (20.0-44.0); MEAN CORPUSCULAR HGB CONC 32 g/dl (31.0-36.0); MEAN CORPUSCULAR VOLUME 93 fL (82-100); MONOCYTES # (AUTO) 0.9 K/uL (0.1-1.30); NEUTROPHILS # (AUTO) 7.9 K/uL (1.8-8.9); NEUTROPHILS % (AUTO) 70.2 % (43.0-81.0); PLATELET COUNT (AUTO) 209 K/uL (150-450); RED BLOOD CELL COUNT(AUTO) 3.92 MIL/uL (4.0-5.2); WHITE BLOOD COUNT (AUTO) 11.2 K/uL (4.3-11.0)
[2022-09-04] MEDS: IV NS 0.9% 1,000 ML IV PRN (08:15)
[2022-09-04] MEDS: PANTOPRAZOLE 40 MG TABLET.DR PO SCH (08:20)
[2022-09-04] MEDS: LEVOTHYROXINE SODIUM 75 MCG TABLET PO SCH (08:20)
[2022-09-04] MEDS: ACIDOPHILUS/BULGARICUS 1 EACH TAB.CHEW PO SCH ×2 (08:21→16:55)
[2022-09-04] MEDS: SERTRALINE HCL 50 MG TABLET PO SCH (08:21)
[2022-09-04] MEDS: POTASSIUM CHLORIDE 20 MEQ TAB.PRT.SR PO SCH ×2 (08:22→12:40)
[2022-09-04] MEDS: LOSARTAN POTASSIUM 25 MG TABLET PO SCH (08:23)
[2022-09-04] MEDS ORDERED: POTASSIUM CHLORIDE 20 MEQ TAB.PRT.SR PO ONE ×3 (09:00→19:00)
[2022-09-04] MEDS: AMLODIPINE BESYLATE 5 MG TABLET PO SCH (09:12)
[2022-09-04] MEDS: LEVOFLOXACIN 500 MG /D5W 100ML 500 MG in PREMIX 1 EA IV SCH (12:23)
[2022-09-04] MEDS: INSULIN REGULAR, HUMAN 100 UNIT/ML 3 ML VIAL SQ PRN ×2 (12:32→17:08)
[2022-09-04 16:00] VITALS: BP 151/72
--- NOTE | 2022-09-04 19:20 | NUR ---
MS RN OPENING NOTE RECEIVED PATIENT IN BED; AWAKE, ALERT AND ORIENTED X 4; VERBALLY RESPONSIVE. ON ROOM AIR; TOLERATING WELL. BREATHING EVEN AND NONLABORED. NOT IN ANY FORM OF RESPIRATORY DISTRESS. WITH IV ACCESS ON RIGHT FOREARM 22g; PATENT AND INTACT INFUSING WITH NS RUNNING @ 75 ML/HR; FLUSHES WELL. NO INFILTRATION NOTED. ABLE TO MAKE NEEDS KNOWN. SAFETY MEASURES IMPLEMENTED: CALL LIGHT AND TABLE WITHIN REACH, SIDE RAILS UP X 2, BED IN LOWEST LOCKED POSITION. WILL CONTINUE TO MONITOR.
--- NOTE | 2022-09-04 19:28 | NUR ---
MS NILES CLOSING NOTE PATIENT IN BED; AWAKE, ALERT AND ORIENTED X 4. ON ROOM AIR; TOLERATING WELL. BREATHING EVEN AND NONLABORED. NOT IN ANY FORM OF RESPIRATORY DISTRESS. WITH IV ACCESS ON RIGHT HAND 22g; PATENT AND INTACT INFUSING WITH NS RUNNING @ 75 ML/HR; FLUSHES WELL. NO INFILTRATION NOTED. ABLE TO MAKE NEEDS KNOWN. DUE MEDS GIVEN. KEPT COMFORTABLE. SAFETY MEASURES IMPLEMENTED: CALL LIGHT AND TABLE WITHIN REACH, SIDE RAILS UP X 2, BED IN LOWEST LOCKED POSITION. WILL CONTINUE TO MONITOR. Addendum: 09/04/22 at 1932 by HOMERO VALERIO RN ENDORSED TO INCOMING NOD.
[2022-09-04 20:00] VITALS: BP 136/64
[2022-09-04] MEDS: MORPHINE SULFATE INJ 2 MG/ML DISP.SYRIN IV PRN (20:49)
--- NOTE | 2022-09-04 20:49 | NUR ---
RN NOTE PT C/O ABDOMINAL PAIN 8/10 PAIN SCALE. PRN MORPHINE 2MG IVP GIVEN ORDERED; WILL CONTINUE TO MONITOR AND REASSESS PT.
[2022-09-04] MEDS: ATORVASTATIN 40 MG TABLET PO SCH (22:00)
[2022-09-04] MEDS: TEMAZEPAM 15 MG CAPSULE PO PRN (22:32)
[2022-09-05] MEDS: METRONIDAZOLE 500 MG TABLET PO SCH ×2 (05:24→12:03)
[2022-09-05 06:00] LABS: BASOPHILS # (AUTO) 0.1 K/uL (0.0-0.2); BASOPHILS % (AUTO) 0.7 % (0.0-2.0); EOSINOPHILS % (AUTO) 3.2 % (0.0-6.0); HEMATOCRIT 35 % (33-45); HEMOGLOBIN 11.7 g/dL (11.5-14.8); LYMPHOCYTES # (AUTO) 2.1 K/uL (0.8-4.8); LYMPHOCYTES % (AUTO) 24.1 % (20.0-44.0); MEAN CORPUSCULAR HGB CONC 34 g/dl (31.0-36.0); MEAN CORPUSCULAR VOLUME 92 fL (82-100); MONOCYTES # (AUTO) 0.8 K/uL (0.1-1.30); MONOCYTES % (AUTO) 9.1 % (2.0-12.0); NEUTROPHILS # (AUTO) 5.5 K/uL (1.8-8.9); NEUTROPHILS % (AUTO) 62.9 % (43.0-81.0); PLATELET COUNT (AUTO) 217 K/uL (150-450); RED BLOOD CELL COUNT(AUTO) 3.81 MIL/uL (4.0-5.2); WHITE BLOOD COUNT (AUTO) 8.7 K/uL (4.3-11.0)
[2022-09-05] MEDS: BLOOD SUGAR DIAGNOSTIC 1 EACH STRIP IN SCH ×2 (06:06→11:35)
[2022-09-05 06:09] LABS: CALCIUM, SERUM 8.1 mg/dL (8.5-10.1); CREATININE 0.8 mg/dL (0.6-1.3); POTASSIUM 3.4 mmol/L (3.5-5.1)
[2022-09-05] MEDS: IV NS 0.9% 1,000 ML IV PRN (06:29)
--- NOTE | 2022-09-05 06:45 | NUR ---
MS RN CLOSING NOTE PATIENT IN BED; AWAKE, A/O X 4; VERBALLY RESPONSIVE. STABLE ON ROOM AIR. RESPIRATION EVEN AND UNLABORED. IN NO ACUTE DISTRESS. DENIES ANY PAIN OR DISCOMFORT AT THI TIME. WITH IV ACCESS ON RIGHT FOREARM 22g; PATENT AND INTACT INFUSING WITH NS RUNNING @ 75 ML/HR; FLUSHES WELL. NO INFILTRATION NOTED. ALL NEEDS ATTENDED TO. ALL DUE MEDS GIVEN ORDERED. SAFETY MEASURES IN PLACE: CALL LIGHT AND TABLE WITHIN REACH, SIDE RAILS UP X 2, BED IN LOWEST LOCKED POSITION. ENDORSED TO MORNING SHIFT FOR [facility].
[2022-09-05] MEDS ORDERED: POTASSIUM CHLORIDE 20 MEQ TAB.PRT.SR PO ONE ×2 (07:00→09:30)
--- NOTE | 2022-09-05 07:45 | NUR ---
MS RN OPENING NOTE RECEIVED PATIENT IN BED; AWAKE, ALERT AND ORIENTED X 4; VERBALLY RESPONSIVE. ON ROOM AIR; TOLERATING WELL. BREATHING EVEN AND NONLABORED. NOT IN ANY FORM OF RESPIRATORY DISTRESS. WITH IV ACCESS ON RIGHT FOREARM 22g; PATENT AND INTACT INFUSING WITH NS @ 75 ML/HR; FLUSHES WELL. NO INFILTRATION NOTED. ABLE TO MAKE NEEDS KNOWN. SAFETY MEASURES IMPLEMENTED: CALL LIGHT AND TABLE WITHIN REACH, SIDE RAILS UP X 2, BED IN LOWEST LOCKED POSITION. WILL CONTINUE TO MONITOR.
[2022-09-05 08:00] VITALS: BP 138/70
[2022-09-05] MEDS ORDERED: LEVO250T59 PO (08:27)
[2022-09-05] MEDS ORDERED: METR500T PO (08:27)
[2022-09-05 08:31] VITALS: BP 138/70
[2022-09-05] MEDS: LOSARTAN POTASSIUM 25 MG TABLET PO SCH (08:31)
[2022-09-05] MEDS: AMLODIPINE BESYLATE 5 MG TABLET PO SCH (08:31)
[2022-09-05] MEDS: ACIDOPHILUS/BULGARICUS 1 EACH TAB.CHEW PO SCH (08:31)
[2022-09-05] MEDS: SERTRALINE HCL 50 MG TABLET PO SCH (08:31)
[2022-09-05] MEDS: PANTOPRAZOLE 40 MG TABLET.DR PO SCH (08:31)
[2022-09-05] MEDS: LEVOTHYROXINE SODIUM 75 MCG TABLET PO SCH (08:32)
[2022-09-05] MEDS: INSULIN REGULAR, HUMAN 100 UNIT/ML 3 ML VIAL SQ PRN (11:26)
[2022-09-05] MEDS ORDERED: LEVOFLOXACIN (250MG) 250 MG TABLET PO SCH (12:00)
--- NOTE | 2022-09-05 13:30 | NUR ---
MS RN DC NOTES: PT MEDICALLY STABLE UPON DC. VS WNL, NO S/S OF SOB OR ACUTE DISTRESS, DENIES PAIN. IV ACCESS AND ID BAND REMOVED. DC INSTRUCTIONS, BELONGINGS CHECKLIST AND DOCUMENTS REVIEWED AND SIGNED BY PATIENT. RN ADDRESSED QUESTIONS AND CONCERNS, PT VERBALIZED UNDERSTANDING. SPOUSE LYN PICKED UP PT, STAFF ESCORTED PT VIA LOBBY, PT LEFT VIA PRIVATE CAR.
== END 2022-09-05 13:30 | disposition home or self-care (01) | DRG 392 ==
LOC: ER 14:37 → TRANSITION 18:30 → TELE 21:38 → MED 08-31
PROVIDERS: ADMIT Nurse Practitioner Acute Care; ATTEND Internal Medicine
DX: A09 Infectious gastroenteritis and colitis, unspecified (principal); E87.1 Hypo-osmolality and hyponatremia; N39.0 Urinary tract infection, site not specified; K92.1 Melena; E11.65 Type 2 diabetes mellitus with hyperglycemia; Z20.822 Contact with and (suspected) exposure to COVID-19; Z79.84 Long term (current) use of oral hypoglycemic drugs; Z79.899 Other long term (current) drug therapy; E03.9 Hypothyroidism, unspecified; E87.6 Hypokalemia; E86.1 Hypovolemia; E78.5 Hyperlipidemia, unspecified; R79.89 Other specified abnormal findings of blood chemistry; I10 Essential (primary) hypertension; F32.A Depression, unspecified; B96.20 Unspecified Escherichia coli [E. coli] as the cause of diseases classified elsewhere; K21.9 Gastro-esophageal reflux disease without esophagitis; Z87.891 Personal history of nicotine dependence
CPT/HCPCS: 36415; 71045-TC; 74018; 80048-TC; 80076-TC; 81001; 82962-TC; 83605-TC; 83690-TC; 83735-TC; 84100-TC; 84132-TC; 84443-TC; 85025-TC; 85730-TC; 86850-TC; 87081-TC; 87086-TC; 87186-TC; 97112-TC; 97116-TC; 97530-TC; A4216; G0378; J0692; J0696; J0744; J1815; J1956; J2060; J2270; J2405; J2543; J2765; J3480; J7030; J7040; J7050; J7060; Q9967